=== PATIENT | male | born 1960 | race Caucasian/White ===

== ENCOUNTER 2024-08-10 08:02 | Inpatient (IN) | payer MEDICARE, SELFPAY ==
[2024-08-10] VITALS (21 sets, daily range): BP systolic 120–192; BP diastolic 76–123; BMI 19.5; BMI 23.1
[2024-08-10 05:24] LABS: Glucose - Point of Care 430 mg/dl (70-99)
[2024-08-10] MEDS: NSS 1000 IV (05:35)
[2024-08-10] MEDS: ATIVAN IV (05:51)
[2024-08-10 05:52] LABS: Venous Blood Gas B.E. -6.6 mmol/L (-4 to +4); Venous Blood Gas HCO3 20.6 mmol/L (22-27); Venous Blood Gas O2 Sat % 88.2 %; Venous Blood Gas pCO2 46 mmHg (35-48); Venous Blood Gas pH 7.26 (7.32-7.43); Venous Blood Gas pO2 61 mmHg (30-50)
[2024-08-10 05:52] LABS: Urine Albumin 3+ (Neg - Trace); Urine Bilirubin Negative (Negative); Urine Character Clear (Clear); Urine Color Yellow; Urine Glucose 4+ (Negative); Urine Ketone Negative (Negative); Urine Leukocyte Negative (Negative); Urine Nitrite Negative (Negative); Urine Occult Blood 1+ (Negative); Urine Specific Gravity 1.015 (<1.030); Urine Urobilinogen Negative (Neg - 1+)
[2024-08-10 05:54] LABS: % Basophils 1.4 % (0-2); % Eosinophils 2.6 % (0-6); % Immature Granulocytes 0.4 % (0-0.5); % Lymphocytes 24.2 % (20.5-51.1); % Monocytes 6.7 % (1.7-9.3); % Neutrophils 64.7 % (42.2-75.2); Absolute Basophils 0.1 10^3/uL (0-0.2); Absolute Eosinophils 0.3 10^3/uL (0-0.7); Absolute Lymphocytes 2.4 10^3/uL (1.2-3.4); Absolute Monocytes 0.7 10^3/uL (0.1-0.6); Absolute Neutrophils 6.5 10^3/uL (1.4-6.5); Hematocrit 51.9 % (39.0-52.0); Hemoglobin 17.2 g/dL (13.0-18.0); Mean Corp Hgb Conc. 33.1 g/dL (33.0-37.0); Mean Corpuscular Hgb 30.5 pg (27.0-31.0); Mean Platelet Volume 10.5 fL (7.4-10.4); Nucleated Red Blood Cells % 0 % (-); Platelet Count 373 10^3/uL (130-400); Red Blood Cell Count 5.64 10^6/uL (4.70-6.10); Red Cell Dist. Width 14.4 % (11.5-14.5)
--- NOTE | 2024-08-10 05:57 | ED.GENMED ---
History of Present Illness
General
Chief Complaint: Seizure
Source: ambulance crew
Exam Limitations: clinical condition and altered mental status
Time Seen by Provider: 08/10/24 05:22
Nursing documentation reviewed up to this point in time: agreed with
History of Present Illness
History of Present Illness:
63-year-old male presents to the emergency department after possibly having a seizure. According to EMS they were called out for patient with altered mental status. Family states they found him minimally responsive. Patient is diabetic and has
had a history of DKA multiple times while here in the past. He has had a stroke or TIA. He has a history of a subarachnoid hemorrhage and CABG. He has never had seizures before.
Vital signs are stable. Patient not hypoxic
Nursing note reviewed. I agree with nursing documentation up to this point in time.
Home Meds and allergies reviewed.
NUMBER AND COMPLEXITY OF PROBLEMS ADDRESSED AT THE ENCOUNTER
� Chronic conditions affecting care: Diabetes, uncontrolled hemoglobin A1c in the past, clinical acute systolic heart failure, sinus tachycardia, hypertension, pancreatitis, influenza, CABG, CKD 3 at baseline, history of SAH,
chronic right SERVICES HOST infarction and chronic right cerebellar infarction
� Acute Exacerbation and/or Progression of Chronic Illness: Insulin-dependent diabetes
� Differential Diagnosis includes: DKA, new onset seizures, subarachnoid, subdural, alcohol intoxication, ingestion
AMOUNT AND/OR COMPLEXITY OF DATA TO BE REVIEWED AND ANALYZED
I performed an independent evaluation of the following and my interpretation is:
EKG: EKG shows sinus rhythm rate of 98 with PVCs present. When compared with previous EKG dated October 22, 2021, morphology is similar with the exception of PVCs.
Pulse Ox: Not Hypoxic on room air
Pecan Gatherer: Sinus Rhythm
CT:
X-rays:
Ultrasound:
Laboratory Studies:
Other:
Review of other/old records:
Clinical information was obtained by an independent historian:
Prescriptions/Medications Considered but not given:
Further testing considered but not performed:
RISK OF COMPLICATIONS AND/OR MORBIDITY OR MORTALITY OF PATIENT MANAGEMENT
Social determinants of health affecting care: Good Social Support
Discussion with other providers:
Escalation of care including admission/observation vs risk of discharge considered: After being observed in the emergency department, patient is
CRITICAL CARE NOTE:
Total Time (exclusive of procedures):
Update:
Past History
Past History
ED Past Medical History: CAD, CVA, HTN, Hypercholesterolemia, IDDM, PR and Other (SAH)
ED Past Surgical History: Cardiac, Orthopedic and Other
Patient has exhibited threatening behavior?: No
Social History
Tobacco: Smoker
Alcohol: None
Drug: None
Personal:
Living: with family
Employment: Employed
Family History
Family History: Other
Review of Systems
Review of Systems
Allergies reviewed?: Yes
All Other Systems: Not applicable
Constitutional: Reports sleep disturbance
Psychiatric: Reports anxiety
Phy Exam
General Physical Exam
General Presentation: severe distress
General age: appears stated age
General Skin: warm and diaphoretic
General Habitus: normal
General Mental: appears intoxicated and confused
General Hydration: appears well hydrated
ENT Exam
ENT Exam: EOMI and neck supple
Eye Exam
Eye Exam: PERRL, cornea clear and conjunctiva normal
Cardiovascular Exam
Cardiovascular Exam: regular rate/rhythm and no edema
Pulmonary Exam
Pulmonary Exam: lungs clear, no respiratory distress, no rales, no rhonchi and no cough
Gastrointestinal Exam
Gastrointestinal Exam: normal bowel sounds, non tender, soft, no organomegaly, no pulsatile mass and non distended
Genitourinary Exam Male
Exam Male: circumcised and other (Excoriation to the glans of the penis that appears to be necrotic)
Neurological Exam
Neurological Exam: alert, oriented x3, no motor deficits and speech normal
Musculoskeletal Exam
Musculoskeletal Exam: full ROM and no edema
Skin Exam
Skin Exam: normal color, warm/dry, no rash and no petechia
Psychiatric Exam
Psychiatric Exam: normal mood/affect
Course
Orders/Labs/Results
Orders:
Orders
08/10/24 05:19
Bedside Glucose- Treatment ONCE
Cardiac Monitoring- Treatment ONCE
O2 Therapy [RESP] Stat
Nasal Cannula Liter Flow: 2 LPM
Titrate/Wean O2 to maintain O2 sat greater than (%): 93
Wean Oxygen to Pre Admission Baseline Therapy-if applicable: Yes
Contact provider if nasal cannula O2 requirement > 6 liters: Yes
Pulse Ox/cont/shift [RESP] Stat
Quantity: 1
08/10/24 05:20
Electrocardiogram (*1) Stat
Reason for Study: Other
Other Reason for Exam: neuro symptoms
08/10/24 05:[address] [CT Head W/o Iv Contrast] Urgent
Comment:
Reason For Exam: seizures
EKG- Treatment ONCE
08/10/24 05:22
Lorazepam [Ativan] 1 mg IV NOW STA
08/10/24 05:35
0.9% Sodium Chloride 1000 ml [Nss] 1,000 ml IV BOLUS
08/10/24 05:43
Alcohol Urgent
B-Hydroxybutyrate Urgent
CRP [C-Reactive Protein] Urgent
Complete Blood Count/With Diff Urgent
Comprehensive Metabolic Panel Urgent
Lipase Urgent
Magnesium Urgent
Sed Rate [Erythrocyte Sed Rate] Urgent
UA Reflex to Culture [Urinalysis Reflex To Culture] Urgent
Date Specimen was Collected: 08/10/24
Time Specimen was Collected: 05:39
Urine Drug Abuse Screen Urgent
Date Specimen was Collected: 08/10/24
Time Specimen was Collected: 05:22
Urine Microscopic Reflex Cult Urgent
08/10/24 05:46
Lactic Acid Urgent
Venous Blood Gas Urgent
%Oxygen/Room Air: RA
08/10/24 06:17
Bedside Glucose- Treatment Q1H
IV Insert/Care/Rem.- Treatment PRN
Insulin Human Regular [Novolin R] 6 units IV NOW STA
Reg Insulin 100 Units/100 ml [Novolin R Insulin Infusion] 100 units in 100 ml IV NOW
08/10/24 06:27
Basic Metabolic Panel Q2H
08/10/24 06:32
Levetiracetam Injectable [Keppra] 2,000 mg IV NOW STA
08/10/24 06:38
Lactated Ringers [Lr] 1,000 ml IV BOLUS
08/10/24 06:40
Insulin Human Regular [Novolin R] 10 units IV NOW STA
08/10/24 06:42
Levetiracetam Injectable [Keppra] 1,000 mg IV NOW STA
08/10/24 06:43
Add On - Microbiology Urgent
Tests Added?: urine G and C
COVID-19 Antigen Urgent
Source: Nasal Swab
Influenza A+B Rapid Molecular Urgent
REJI Source: Nasal Swab
Specimen Description:
08/10/24 06:45
Blood Culture Q30M
REJI Source: Blood/Venous
Specimen Description:
MRSA Screen Routine
REJI Source: Nose
Specimen Description:
Wound Culture [Wound/Abscess/Other Culture] Urgent
REJI Source: Lesion
Specimen Description:
Date Specimen was Collected: 08/10/24
Time Specimen was Collected: 06:46
Comment: source: penis
08/10/24 07:15
Blood Culture Q30M
REJI Source: Blood/Venous
Specimen Description:
08/10/24 08:30
Basic Metabolic Panel Q2H
08/10/24 10:30
Basic Metabolic Panel Q2H
Abnormal Lab Results
08/10/24 08/10/24 08/10/24
05:23 05:43 05:46
MPV 10.5 H fL
(7.4-10.4)
Absolute Monos (auto) 0.7 H 10^3/uL
(0.1-0.6)
VBG pH 7.26 L
(7.32-7.43)
VBG pO2 61 H mmHg
(30-50)
VBG HCO3 20.6 L mmol/L
(22-27)
Carbon Dioxide 21 L mmol/L
(22-30)
BUN 40 H mg/dl
(9-20)
Creatinine 1.6 H mg/dL
(0.7-1.3)
Glucose 461 H* mg/dl
(70-99)
Lactic Acid 7.1 H* mmol/L
(0.7-2.0)
Calcium 10.3 H mg/dl
(8.4-10.2)
Total Bilirubin 2.2 H mg/dl
(0.2-1.3)
Alkaline Phosphatase 269 H U/L
(38-126)
C-Reactive Protein 12.40 H mg/L
(0.0-10.00)
Ur Occult Blood Reflex 1+ A
(Negative)
Urine Bacteria (Reflex) Few A
(Negative)
Urine Glucose 4+ A
(Negative)
Urine Albumin (Reflex) 3+ A
(Neg - Trace)
B-Hydroxybutyrate 0.41 H mmol/L
(0.02-0.27)
POC Glucose 430 H mg/dl
(70-99)
08/10/24
06:24
MPV
Absolute Monos (auto)
VBG pH
VBG pO2
VBG HCO3
Carbon Dioxide
BUN
Creatinine
Glucose
Lactic Acid
Calcium
Total Bilirubin
Alkaline Phosphatase
C-Reactive Protein
Ur Occult Blood Reflex
Urine Bacteria (Reflex)
Urine Glucose
Urine Albumin (Reflex)
B-Hydroxybutyrate
POC Glucose 391 H mg/dl
(70-99)
08/10/24 05:43
Vital Signs
Initial and Last Documented VS:
Initial Vital Signs
BP
192/118
08/10/24 05:21
Last Documented Vital Signs
Temp Pulse Resp BP Pulse Ox
98.2 F 106 18 171/98 96
08/10/24 05:22 08/10/24 06:15 08/10/24 06:15 08/10/24 06:00 08/10/24 06:15
*Pulse Oximetry
Patient hypoxic: no
*Pecan Gatherer Interpretation
Rate: normal
Interpretation: normal
Heart Rate: 88
Rhythm: sinus
*Critical Care Note
Total Time (30-74mins, 75-104mins- exclusive of procedures): 50 (Critical care statement: A total of 50 minutes of critical care time was provided for this patient. This time is separate from time utilized to perform the aforementioned documented
procedures. Aggregate critical care time includes only time during which I was engaged in work directl)
Update Note
Update Note:
Patient has an anion gap of 17
CT HEAD WITHOUT CONTRAST
COMPARISON: 10/21/2021
IMPRESSION:
No acute intracranial hemorrhage. No evidence of acute infarct.
Encephalomalacia right cerebellum, left parietal, right occipital lobes.
No mass effect or midline shift.
Ventricles are normal without hydrocephalus.
Visualized paranasal sinuses and mastoids are clear.
No calvarial lesion.
Spoke with who is now present at the bedside.
She stated that patient has not been able to converse normally for the last 2 days.
he has never had a seizure before
His mother last week.
ED Attending Note
-
Portions of this chart may have been created with voice recognition software.� Occasional wrong word or��sound alike� substitutions may have occurred due to the inherent limitations of voice recognition software.
Discharge Plan
Departure
Patient Disposition: Admit
Date of Disposition: 08/10/24
Time of Disposition: 06:49
Presentation/result/management discussed w/ accepting MD/DO: Hospitalist
Patient with high blood pressure during this ER visit?: Yes
Condition: Critical
Discharge Problem:
DKA (diabetic ketoacidosis), CAD (coronary artery disease), Diabetes, CKD (chronic kidney disease) stage 3, GFR 30-59 ml/min, New onset seizure, History of CVA (cerebrovascular accident)
Prescriptions:
No Action
metoprolol succinate 25 MG tablet extended release 24 hr
25 mg PO DAILY
pantoprazole 40 MG tablet,delayed release (DR/EC)
40 mg PO DAILY
insulin regular human [Novolin R FlexPen] 300 UNITS/3 ML insulin pen
16 units SC DAILY@0800 Qty: 0 0RF
torsemide 10 MG tablet
10 mg PO DAILY Qty: 30 0RF
hydralazine 25 MG tablet
25 mg PO BID Qty: 60 0RF
atorvastatin 80 MG tablet
80 mg PO QPM Qty: 30 0RF
clopidogrel 75 MG tablet
75 mg PO DAILY Qty: 30 0RF
aspirin 81 MG tablet,chewable
81 mg PO DAILY Qty: 30 0RF
insulin NPH isoph U-100 human [Novolin N FlexPen] 100 UNIT/ML insulin pen
15 unit SQ QPM@1700
insulin NPH isoph U-100 human [Novolin N FlexPen] 100 UNIT/ML insulin pen
17 unit SQ DAILY
insulin regular human [Novolin R FlexPen] 300 UNITS/3 ML insulin pen
12 units SC QPM@1700
meclizine 12.5 MG tablet
12.5 mg PO TID Qty: 30 0RF
Referrals:
UNKNOWN - PT DOES,NOT KNOW [Family Provider] -
Interventions
Interventions:
*Risk Screen - Suicide Last Done: 08/10/24 05:22
*General Assessment Last Done: 08/10/24 05:22
*Neglect/Abuse Screening Last Done: 08/10/24 05:22
*ED COVID-19 Vaccine History Last Done: 08/10/24 05:22
ED- Cardiac Assessment Last Done: 08/10/24 05:56
ED- Neurological Assessment Last Done: 08/10/24 05:59
ED- Pulmonary Assessment Last Done: 08/10/24 05:59
Discharge Date and Time
Print Language: PORTUGUESE
[2024-08-10 06:02] LABS: Erythrocyte Sed Rate 2 mm/hour (0-20)
[2024-08-10 06:07] LABS: Venous Blood Gas O2 Therapy ROOM AIR
[2024-08-10 06:08] LABS: Urine Bacteria Few (Negative); Urine Red Blood Cell 0-2 /HPF (0-2); Urine Squamous Cell 0-2 /LPF (Few); Urine White Cell 0-2 /HPF (0-5)
[2024-08-10 06:10] LABS: Amphetamines Negative (Negative); Barbiturates Negative (Negative); Benzodiazepines Negative (Negative); Buprenorphine Negative (Negative); Cocaine Negative (Negative); Marijuana Negative (Negative); Methadone Negative (Negative); Methamphetamines Negative (Negative); Opiates Negative (Negative); Phencyclidine Negative (Negative); Tricyclic Antidepressants Negative (Negative)
[2024-08-10 06:13] LABS: Lactic Acid 7.1 mmol/L (0.7-2.0)
[2024-08-10] MEDS: ATIVAN 1 MG IV (06:13)
[2024-08-10 06:14] LABS: AST (SGOT) 54 U/L (17-59); Albumin 3.8 g/dl (3.5-5.0); Alcohol < 10 mg/dl; Alkaline Phosphatase 269 U/L (38-126); Blood Urea Nitrogen 40 mg/dl (9-20); Calcium 10.3 mg/dl (8.4-10.2); Carbon Dioxide 21 mmol/L (22-30); Chloride 105 mmol/L (98-107); Estimated Creatinine Clearance 41 ml/min; Glucose 461 mg/dl (70-99); Lipase 82 U/L (23-300); Potassium 3.9 mmol/L (3.5-5.1); Sodium 143 mmol/L (135-145); Total Bilirubin 2.2 mg/dl (0.2-1.3); Total Protein 7.2 g/dl (6.3-8.2); eGFR 48.11
--- NOTE | 2024-08-10 06:14 | EDRN ---
Pt. w. second witnessed seizure, pt w/ rt. gaze preference and jerking motions of upper body, Dr. Rolf koch, RN administered ativan per orders, seizure ceased, lasted approximately 20 seconds. Pt's pulse ox. dropped to 86% on RA, RA pulse ox.
up to 90 % on RA s/p seizure, pt. placed on 2L NC, pulse ox. now 96% on 2LNC.
[2024-08-10 06:24] LABS: ALT (SGPT) 47 U/L (0-50); B-Hydroxybutyrate 0.41 mmol/L (0.02-0.27)
[2024-08-10 06:25] LABS: Glucose - Point of Care 391 mg/dl (70-99)
--- NOTE | 2024-08-10 06:46 | HPS.HSE ---
Family Physician
-
Family Physician: NOT KNOW UNKNOWN - PT DOES
Chief Complaint
-
Seizure
History of Present Illness
This is a 63-year-old male with past medical history significant for CAD status post CABG, prior CVA, insulin-dependent diabetes, hypertension, hyperlipidemia, chronic ambulatory dysfunction presenting to the emergency department with altered mental
status and also had a seizure episode.
Patient was postictal at the time of my interview and unable to provide any history. History obtained from spouse who speaks some possible [place]. She stated at around 4 AM she found him having generalized shaking. He was not able to talk and
was not responsive. This caused family to call EMS. When EMS started patient he was minimally responsive. He was somnolent. EMS then transferred patient to the emergency department. On arrival in the emergency department at around 5-5 20 the
patient was seen having a seizure activity that was terminated with IV benzo.
Spouse reports possible that the patient has been having altered mental status for around 2 days. He was having difficulty speaking. He appears to be having garbled speech for about 2 days. He was only tolerating pudding and liquids. He was
having ambulatory difficulties and today was not even able to get up. Spouse denies any chest congestion cough fevers or chills. She denies any urinary symptoms. She denies any abdominal symptoms. She denies any trauma. She said that he had a
similar presentation about 1 week ago but appeared to recover and then symptoms started recurring about 2 days ago. Patient has no recent travels and they have no known sick contacts. Patient's spouse reported that he had a recent changes in
insulin regimen going from regular/Novolin to Lantus and Humalog. He was given that units of Lantus at bedtime and she reports low blood glucose in the mornings but she has since discontinued the Lantus and she reports that last morning blood
glucose were normal. She checked his glucose last night after putting dinner and the glucose was around 200. She did give insulin at that time. He has no other acute changes in his medications. He has no history of seizures.
In the emergency department initial findings were blood pressure of 162/94, pulse of 105, respiratory rate of 13 and oxygen saturation of 94% on 2 L. ECG showed a sinus rhythm at a rate of [address] or T wave changes. CBC shows a
hemoglobin of 17.2 white count of 10 and a bili of 375. Electrolytes were normal his creatinine was 1.6 which is baseline BUN was elevated at 40. Calcium slightly elevated at 10.3 magnesium 2.0. Glucose was elevated at 461. He has a bicarb of
21. Anion gap was 17. pH was 7.26. Initial lactic acid was 7.1.
Medical History
Past Medical History
Past Medical History: Reports CAD (Status post CABG), CVA, HTN, Hypercholesterolemia, IDDM and Other (Subarachnoid hemorrhage)
Past Surgical History: Reports Cardiac (CABG)
Social History
Unable to obtain full social history at this time due to: Patient Non-verbal
Family History
Family History: Not pertinent
Allergies / Home Medications
Allergies reflects when Allergies were last updated in [facility].
Home Medications with original date entered in [facility]
Allergy/Medication List:
Allergies
Allergy/AdvReac Type Severity Reaction Status Date / Time
No Known Allergies Allergy Verified 08/10/24 05:19
Home Medications
metoprolol succinate 25 mg tablet,extended release 24 hr 25 mg PO DAILY Blood pressure 03/10/21
pantoprazole 40 mg tablet,delayed release 40 mg PO DAILY Gastrointestinal issue 03/10/21
aspirin 81 mg chewable tablet 81 mg PO DAILY Blood clot prevention/tx #30 tabs 03/20/21
atorvastatin 80 mg tablet 80 mg PO QPM High cholesterol #30 tabs 03/20/21
clopidogrel 75 mg tablet 75 mg PO DAILY Blood clot prevention/tx #30 tabs 03/20/21
hydralazine 25 mg tablet 25 mg PO BID #60 tabs 03/20/21
insulin regular human 100 unit/mL (3 mL) subcutaneous pen (Novolin R FlexPen) 16 units (0.16 mL) SC DAILY@0800 ##0 03/20/21
torsemide 10 mg tablet 10 mg PO DAILY #30 tabs 03/20/21
insulin NPH isoph U-100 human 100 unit/mL (3 mL) subcutaneous pen (Novolin N FlexPen) 15 unit SQ QPM@1700 10/21/21
insulin NPH isoph U-100 human 100 unit/mL (3 mL) subcutaneous pen (Novolin N FlexPen) 17 unit SQ DAILY 10/21/21
insulin regular human 100 unit/mL (3 mL) subcutaneous pen (Novolin R FlexPen) 12 units SC QPM@1700 10/21/21
meclizine 12.5 mg tablet 12.5 mg PO TID #30 tabs 10/24/21
Review of Systems
-
Unable to obtain full review of systems at this time due to: Patient Non-verbal
Physical Exam
Vital Signs
Vital Signs
Temp Pulse Resp BP Pulse Ox
98.2 F 106 18 171/98 96
08/10/24 05:22 08/10/24 06:15 08/10/24 06:15 08/10/24 06:00 08/10/24 06:15
Physical Exam
General: Well Developed and No Apparent Distress
HEENT: NormoCephalic, Anicteric, Moist mucous membranes, Atraumatic, PERRLA and Oxygen
Respiratory: Clear
Cardiac: S1/S2 and Regular Rhythm
Breast: Deferred by me
GI: Soft, Non Tender, Non Distended and Normal Bowel Sounds
Rectal: Deferred by Provider
Genito-urinary: Clear Urine
Musculoskeletal: No Clubbing, No Cyanosis and No Edema
Skin: Rash (penile rash with small open wound, malodorous)
Neuro: Sedated (post-ictal depression)
Hematologic/Lymphatic: No Lymphadenopathy
Laboratory Results
-
08/10/24 05:43
Laboratory Results
Lactic Acid 7.1 mmol/L (0.7-2.0) H* 08/10/24 05:46
Total Bilirubin 2.2 mg/dl (0.2-1.3) H 08/10/24 05:43
AST 54 U/L (17-59) 08/10/24 05:43
ALT 47 U/L (0-50) 08/10/24 05:43
Alkaline Phosphatase 269 U/L (38-126) H 08/10/24 05:43
Lipase 82 U/L (23-300) 08/10/24 05:43
Data Reviewed
-
CT Scan: Report Reviewed by me
Medical Tests (Nuc Med, Echo, EKG etc): Image Personally Visualized and interpreted
Lab Data: Labs Reviewed by me
Old Records: Reviewed
Impression/Plan
-
IMPRESSION:
63 y.o with new onset seizures in the setting of approximately 2 days of altered mental status typified by speech difficulty (garbled speech) and ambulatory difficulty. Possibly preceding stroke with possible status epilepticus. Hyperglycemia with
mild anion gap which I suspect is secondary to lactic acidosis from the status epilepticus. No acute infection on initial evaluation.
PLAN:
1. New onset seizures - Status epilepticus s/p benzos now post ictal.
- admit to IMU
- head ct w/o acute findings
- u/a is clear
- drug screen is negative
- no etoh use
- differential includes stroke, unknown mass, infection or hypoglycemic episode
- MRI, EEG. When stable and if indicated possible LP
- Keppra 750mg q 12 for now given GFR
- lorazepam 2g IV q8 prn sz
- additional Inf w/u with blood cultures and viral panel,
- NPO for now
- neurochecks q 4 hours
- while NPO will maintain BP < 180 with iv labetolol prn
- neurology consult
2. Hyperglycemia - Initial glucose 460, now 390 s/p 1 L NS. AGAP 17 with lactate of 7. bHB pending. pH 7.26.
- insulin 10 units + additional 1 L LR
- if bHB negative, no indication for DKA protocol
- continue on LR at 80 ml/hr
- blood glucose q 4 hours w/ moderate sliding scale insulin
- diabetes RESIDENTIAL INSTRUCTOR consult[ home regimen currently is a Insulin N/R 17/16 units am and 15/12 units pm, the prescription for lantus 30 with humalog 15 tidac lead to hypoglycemia and was discontinued.]
3. Skin lesion - irritation vs chancroid lesion. No Inguinal lymphadenopathy. Less likely syphilis
- given neurological changes will test for treponema serology w/ rpr
- wound/lesion culture cultures
- urinary G/C
- ID consult
4. CAD - NO acute ischemic changes
- restart aspirin/plavix/statin when tolerating po
- metoprolol 5mg iv q 6 for now pending npo
- holding torsemide
DVT PPX - heparin sq
code status - Full Code
[2024-08-10] MEDS: KEPPRA 1000 MG IV (06:55)
[2024-08-10] MEDS: NOVOLIN R 10 UNITS IV (06:56)
[2024-08-10] MEDS: LR 1000 IV ×3 (06:56→20:22)
[2024-08-10 07:07] LABS: Blood Urea Nitrogen 39 mg/dl (9-20); Calcium 9.2 mg/dl (8.4-10.2); Carbon Dioxide 21 mmol/L (22-30); Chloride 108 mmol/L (98-107); Estimated Creatinine Clearance 44 ml/min; Glucose 460 mg/dl (70-99); Potassium 4.2 mmol/L (3.5-5.1); Sodium 141 mmol/L (135-145); eGFR 51.99
[2024-08-10 07:29] LABS: Glucose - Point of Care 343 mg/dl (70-99)
[2024-08-10 08:00] LABS: COVID-19 Antigen Negative (Negative)
[2024-08-10 08:08] LABS: Glucose - Point of Care 305 mg/dl (70-99)
--- NOTE | 2024-08-10 08:17 | CON.NEURO ---
Consultation
Order
Date of Consultation: 08/10/24
Requesting Provider: Levi cMfarland MD
Reason for Consult: New onset of seizure.
Neurology Consultation Note.
HPI: This is a 63-year-old man who presented to [facility] on 08/10/2024 with encephalopathy and seizure. According to patient's spouse(Thai fbi sharpshooter ID: [id number]) around 4 a.m., the patient was witnessed to have developed
'bilateral upper and lower extremity tremors and facial asymmetry. Following the episode he has been lethargic prompting the evaluation.
Mr. Christianson has a history of progressive cognitive decline over the past few months, with significant worsening in the last two years. For the past six months, he has required assistance with activities of daily living, including bathing and
toileting. He has been incontinent been using walker for ambulation .
According to EMR the patient was diagnosed with bihemispheric strokes in settings of influenza, DKA/acute pancreatitis/respiratory failure in 2020. At that time he was found to have PFO and had LINQ placed. It is unclear at this time whether
patient had cardiology follow-up.
ER VS: 192/118, 117, afebrile
EKG: sinus rhythm, QTc Int : 482 ms
PDMP: none
Labs: Glucose�460, lactic acid�7.1, normal calcium, sodium, creatinine�1.5, normal WBCs
CT head wo contrast�advanced for the age atrophy, severe periventricular hypodensities, chronic right [employer] infarct
Brain MRI without naz (03/15/2021)�acute/subacute bihemispheric subcortical/cortical infarcts
JAMIN(03/18/2021) there are bubbles immediately crossing into the left atrium, No intracardiac mass or thrombus
LE Doppler US(03/17/2021) negative for DVT
PMH: vascular dementia, bihemispheric strokes (2020), PFO, SAH(2008?), CAD, HTN, DLP, type I DM, CKD, h/o pancreatitis, GERD, BMI 19, ambulatory dysfunction, ambulatory dysfunction
PSH: LINQ, CABG
SH: , on disability since 2008, formerly worked for [employer], non-smoker, no history excessive alcohol use; ambulates with a walker
FH: Stroke and coronary artery disease
All:NKDA
ROS: C unable due to encephalopathy
General: Chronically ill looking
Cardio: Regular rate and rhythm. Extremities are without cyanosis or edema.
Neuro:
Mental Status: Stuporous. Moans to sternal rub does not follow requests. No verbal output
Cranial Nerves: Orthophoric primary gaze. Pupils 2.5 mm, nonreactive. No nystagmus, facial weakness.
Motor: Increased motor tone left greater than right
Reflexes: No clonus at the ankles.
Sensory: Unable to report
Coordination: No tremors myoclonic movements
Gait: deferred
Assessment and Plan:
I. First seizure, likely symptomatic.
II. Hypertensive emergency
III. Multifactorial encephalopathy (vascular, metabolic)
IV. 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
V. History of SAH
-Continue Telemetry monitoring
-History glycemic control
-Seizure precaution
-Cautious lowering of BP by approximately 15 % during the first 24 hours is SBP >220 mmHg or diastolic blood pressure >120 mmHg
-Restart antihypertensive medications if BP>140/90 mmHg and neurologically stable in 24 to 48 hours after stroke onset
-Brain MRI without naz
-Routine EEG
-Carotid Doppler ultrasound
-Start Keppra
-Please check magnesium, UA, urine tox, B12, TFTs, CK level
-Continue aspirin 81 mg once a day and Plavix 75 mg once a day
-Please obtain cardiology records to review Linq data if available.
-Please obtain medical records from [facility]
-DVT prophylaxis.
I personally reviewed all radiology and labs along with past medical records pertinent to current medical problems. Total time spent in patient care is 70 minutes.
Thank you for allowing us to participate in the care of this patient. We will continue to follow. Please do not hesitate to contact us with any questions or concerns.
Subjective/Objective
Subjective Data
Date of Service: August 10, 2024
Objective Data
Vital Signs
Temp Pulse Resp BP Pulse Ox
36.8 C 92 17 159/102 99
08/10/24 05:22 08/10/24 06:45 08/10/24 06:30 08/10/24 06:28 08/10/24 06:45
Lab Results
08/10/24 05:43
Sodium 141 mmol/L (135-145) 08/10/24 06:27
Potassium 4.2 mmol/L (3.5-5.1) 08/10/24 06:27
BUN 39 mg/dl (9-20) H 08/10/24 06:27
Glucose 460 mg/dl (70-99) H* 08/10/24 06:27
Calcium 9.2 mg/dl (8.4-10.2) 08/10/24 06:27
Ur Buprenorphine Negative (Negative) 08/10/24 05:43
Patient Allergies
No Known Allergies Allergy (Verified 08/10/24 05:19)
Medications
-
Active Medications
Generic Name Dose Route Start Last Admin
Trade Name Freq PRN Reason Stop Dose Admin
Insulin Human Regular 100 units in 100 mls @ 3.075 mls/hr 08/10/24 06:17 08/10/24 06:38
Novolin R Insulin Infusion IV 08/11/24 14:48 Not Given
NOW STA
0.05 UNITS/KG/HR
Home Medications
�Medication �Instructions �Recorded
metoprolol succinate 25 mg 25 mg PO DAILY Blood pressure 03/10/21
tablet,extended release 24 hr
pantoprazole 40 mg tablet,delayed 40 mg PO DAILY Gastrointestinal 03/10/21
release issue
aspirin 81 mg chewable tablet 81 mg PO DAILY Blood clot 03/20/21
prevention/tx #30 tabs
atorvastatin 80 mg tablet 80 mg PO QPM High cholesterol #30 03/20/21
tabs
clopidogrel 75 mg tablet 75 mg PO DAILY Blood clot 03/20/21
prevention/tx #30 tabs
hydralazine 25 mg tablet 25 mg PO BID #60 tabs 03/20/21
insulin regular human 100 unit/mL 16 units (0.16 mL) SC DAILY@0800 03/20/21
(3 mL) subcutaneous pen (Novolin R ##0
FlexPen)
torsemide 10 mg tablet 10 mg PO DAILY #30 tabs 03/20/21
insulin NPH isoph U-100 human 100 15 unit SQ QPM@1700 10/21/21
unit/mL (3 mL) subcutaneous pen
(Novolin N FlexPen)
insulin NPH isoph U-100 human 100 17 unit SQ DAILY 10/21/21
unit/mL (3 mL) subcutaneous pen
(Novolin N FlexPen)
insulin regular human 100 unit/mL 12 units SC QPM@1700 10/21/21
(3 mL) subcutaneous pen (Novolin R
FlexPen)
meclizine 12.5 mg tablet 12.5 mg PO TID #30 tabs 10/24/21
Vital Signs and Labs
-
Vital Signs and Labs:
Vital Signs
Temp Pulse Resp BP Pulse Ox
36.8 C 92 17 159/102 99
08/10/24 05:22 08/10/24 06:45 08/10/24 06:30 08/10/24 06:28 08/10/24 06:45
Lab Results
08/10/24 05:43
Sodium 141 mmol/L (135-145) 08/10/24 06:27
Potassium 4.2 mmol/L (3.5-5.1) 08/10/24 06:27
BUN 39 mg/dl (9-20) H 08/10/24 06:27
Glucose 460 mg/dl (70-99) H* 08/10/24 06:27
Calcium 9.2 mg/dl (8.4-10.2) 08/10/24 06:27
Ur Buprenorphine Negative (Negative) 08/10/24 05:43
Medications
-
Medications:
Generic Name Dose Route Start Last Admin
Trade Name Freq PRN Reason Stop Dose Admin
Insulin Human Regular 100 units in 100 mls @ 3.075 mls/hr 08/10/24 06:17 08/10/24 06:38
Novolin R Insulin Infusion IV 08/11/24 14:48 Not Given
NOW STA
0.05 UNITS/KG/HR
Home Medications
-
Home Medications
metoprolol succinate 25 mg tablet,extended release 24 hr 25 mg PO DAILY Blood pressure 03/10/21
pantoprazole 40 mg tablet,delayed release 40 mg PO DAILY Gastrointestinal issue 03/10/21
aspirin 81 mg chewable tablet 81 mg PO DAILY Blood clot prevention/tx #30 tabs 03/20/21
atorvastatin 80 mg tablet 80 mg PO QPM High cholesterol #30 tabs 03/20/21
clopidogrel 75 mg tablet 75 mg PO DAILY Blood clot prevention/tx #30 tabs 03/20/21
hydralazine 25 mg tablet 25 mg PO BID #60 tabs 03/20/21
insulin regular human 100 unit/mL (3 mL) subcutaneous pen (Novolin R FlexPen) 16 units (0.16 mL) SC DAILY@0800 ##0 03/20/21
torsemide 10 mg tablet 10 mg PO DAILY #30 tabs 03/20/21
insulin NPH isoph U-100 human 100 unit/mL (3 mL) subcutaneous pen (Novolin N FlexPen) 15 unit SQ QPM@1700 10/21/21
insulin NPH isoph U-100 human 100 unit/mL (3 mL) subcutaneous pen (Novolin N FlexPen) 17 unit SQ DAILY 10/21/21
insulin regular human 100 unit/mL (3 mL) subcutaneous pen (Novolin R FlexPen) 12 units SC QPM@1700 10/21/21
meclizine 12.5 mg tablet 12.5 mg PO TID #30 tabs 10/24/21
[2024-08-10 09:04] LABS: Glucose - Point of Care 263 mg/dl (70-99)
[2024-08-10] MEDS: HEPARIN 5000 UNITS SC ×3 (09:11→23:45)
[2024-08-10] MEDS: NOVOLOG FLEXPEN-MODERATE RESISTANCE 5 UNITS SC (09:14)
[2024-08-10 09:32] LABS: Blood Urea Nitrogen 38 mg/dl (9-20); Calcium 9.2 mg/dl (8.4-10.2); Carbon Dioxide 26 mmol/L (22-30); Chloride 110 mmol/L (98-107); Estimated Creatinine Clearance 47 ml/min; Glucose 298 mg/dl (70-99); Potassium 3.6 mmol/L (3.5-5.1); Sodium 141 mmol/L (135-145); eGFR 56.48
[2024-08-10 09:58] LABS: Creatine Phosphokinase 45 U/L (55-170); Magnesium 1.8 mg/dl (1.6-2.3)
[2024-08-10 10:41] LABS: Glucose - Point of Care 199 mg/dl (70-99)
[2024-08-10 10:59] LABS: Blood Urea Nitrogen 37 mg/dl (9-20); Calcium 9.4 mg/dl (8.4-10.2); Carbon Dioxide 28 mmol/L (22-30); Chloride 110 mmol/L (98-107); Estimated Creatinine Clearance 47 ml/min; Glucose 216 mg/dl (70-99); Lactic Acid 3.1 mmol/L (0.7-2.0); Potassium 3.3 mmol/L (3.5-5.1); Sodium 144 mmol/L (135-145); eGFR 56.48
--- NOTE | 2024-08-10 11:19 | EDRN ---
Report given to NORMAN King in IMU.
[2024-08-10 11:30] LABS: TSH Reflex To Free T4 2.99 uIU/ml (0.47-4.68)
--- NOTE | 2024-08-10 12:04 | CON.ID ---
Consultation
-
Date/Time Consultation Requested: 08/10/24 8:50
Date/Time Consultation Performed: 08/10/24 12:04
Requesting Provider: Dr Mcfarland
Performing Provider: Dr Schuler
Reason for Consultation: penile lesion
Chief Complaint / Past History
Chief Complaint
seizure
History of Present Illness
Mr Christianson is a 63 year old male with history of prior CVA who presented [facility] late last night for altered mental status and a seizure witnessed by EMS. Starting about 2 days ago reported AMS for about 2 days, garbled speech and difficulty
speaking. He was still taking some liquid and pudding but unable to eat. No fevers, chills or chest congestion. No abdominal pain or dysuria. No trauma. Of note with a similar episode about 1 week ago that spontaneously resolved. Household
member reported at 4 am he was having generalized shaking, not responsive, not able to respond. EMS called, found him minimally responsive, somnolent. On arrival in the ER had a witnessed seizure that terminated with a benzodiazepine. No known
history of seizures. Requiring assistance with ADLs - bathing and toileting
Family note that his insulin was recently changed from regular/novolin to lantus and humalog. noted 'low' blood glucoses in the AM and lantus was stopped.
In the emergency department blood pressure of 162/94, pulse of 105, RR 13 and O2 saturation 94% on 2 L. ECG sinus rhythm. CBC with WBC count 10.0, hemoglobin of 17.2, plt 373, no L shift, Na 143, cr 1.6 at his baseline, glucose 461, lactic acid
initially 7.1, CK 45, UA no pyuria, UDS negative, BHB 0.41 (normal up to 0.27), 2011 RPR nonreactive, 2020: Hep B/C serologies negative, today syphilis serology in progress, HSV 1/2 pending, covid ag pending, CT head w/o contrast: no acute findings,
multiple old infarcts, influenza negative, wound culture in progress, blood cultures x2 no growth to date, urine culture pending, patient will state that the wound is painful, doesnt respond to questions about sexual history.
Past History
Additional Past Medical History:
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
CAD (Status post CABG), CVA, HTN, Hypercholesterolemia, IDDM and Other (Subarachnoid hemorrhage)
Additional Past Surgical History:
CABG
Allergy History:
No Known Allergies Allergy (Verified 08/10/24 05:19)
Medications Reviewed: Yes
Social History
Tobacco: Other (, on disability since 2008, formerly worked for [employer], non-smoker, no history excessive alcohol use; ambulates with a walker)
Family History
Family History: Not Pertinent
Review of Systems
Review of Systems
General: Negative Fever or Chills
All systems: All other systems were reviewed and were negative
Vital Signs
Temp Pulse Resp BP Pulse Ox
98.2 F 79 20 138/84 99
08/10/24 05:22 08/10/24 11:00 08/10/24 11:00 08/10/24 11:00 08/10/24 11:00
Physical Exam
Physical Exam
Constitutional: No Acute Distress
Head: Other (resting in position with knees and neck flexed)
Cardiovascular: Regular Rate and S1/S2; Negative Murmur or Rub
Pulmonary: Clear and Symmetric; Negative Wheezes, Rales or Rhonchi
Gastrointestinal: Soft, Non Tender, Non Distended and Normal Bowel Sounds
Skin: Warm and Dry; Negative Rash or Jaundice
Wound: Other
Lab / Diagnostic Study Results
08/10/24 05:43
Abs Immat Gran (auto) 0.0 10^3/uL (0-0.05) 08/10/24 05:43
Absolute Neuts (auto) 6.5 10^3/uL (1.4-6.5) 08/10/24 05:43
Absolute Lymphs (auto) 2.4 10^3/uL (1.2-3.4) 08/10/24 05:43
Absolute Monos (auto) 0.7 10^3/uL (0.1-0.6) H 08/10/24 05:43
Absolute Basos (auto) 0.1 10^3/uL (0-0.2) 08/10/24 05:43
Immature Gran % 0.4 % (0-0.5) 08/10/24 05:43
Neutrophils % 64.7 % (42.2-75.2) 08/10/24 05:43
Lymphocytes % 24.2 % (20.5-51.1) 08/10/24 05:43
Monocytes % 6.7 % (1.7-9.3) 08/10/24 05:43
Eosinophils % 2.6 % (0-6) 08/10/24 05:43
Basophils % 1.4 % (0-2) 08/10/24 05:43
ESR 2 mm/hour (0-20) 08/10/24 05:43
Lactic Acid 3.1 mmol/L (0.7-2.0) H 08/10/24 10:38
C-Reactive Protein 12.40 mg/L (0.0-10.00) H 08/10/24 05:43
Ur Squamous Epith Cells 0-2 /LPF (Few) 08/10/24 05:43
Microbiology Results
Micro:
08/10/24 07:10 Wound Culture - Pending
Lesion Gram Stain - Preliminary
08/10/24 07:12 Influenza Types A & B (MONSE) - Final
Nasal Swab Negative for Influenza A & B, NAAT
Negative results must be combined with clinical observations
and patient history.
Nucleic Acid Amplification test (NAAT)performed on the
[email or web address] platform.
08/10/24 05:43 Urine Culture - Pending
Urine
08/10/24 07:10 MRSA Screen - Pending
Nose
08/10/24 07:10 Blood Culture - Pending
Blood/Venous
08/10/24 07:10 Blood Culture - Pending
Blood/Venous
Assessment / Plan
Initial Seizure Episode
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
History of SAH
CKD
- for MRI brain - without contrast per neurology
- without meningeal signs
Single, Painful Penile lesion with developing eschar without inguinal lymphadenopathy
- lesion with developing eschar, not typical of syphilis, HSV; LGV also seems less likely. Nonsexual causes of wounds also on the differential.
- history currently limited by the condition of the patient; attempted to call spouce Lat with timber sprinkler [id number] via timber sprinkler line however line was busy
- note that he has had progressive cognitive decline over the last two years, 6 months has required assistance with ADLs: bathing and toileting; he is incontinent. Not clear to me if he has nonfamily care givers in the home and would be relevant
history.
- agree with checking syphilis screen; 2011 screen on file here negative; anticipated results tuesday; lesion is not typical given eschar
- HSV1/2 PCR - completed, awaiting results
- wound culture was obtained - expected polymicrobial skin kathleen and enterics, these would likely be colonizers rather than the cause of the wound
- GC/chlamydia on the urine in progress
- will consider additional screening pending further information from family and course
Has indications for home hospice including inability to preform ADLs
--- NOTE | 2024-08-10 12:08 | PTCARENOTE ---
Pt rom ER letargic, not responding to commands. Pt has a sore on his penis that he grabs at . Pt voided while getting wiped with CHG clothes. NOw having US aof abd
[2024-08-10 12:20] LABS: Glucose - Point of Care 122 mg/dl (70-99)
[2024-08-10] MEDS: NOVOLOG FLEXPEN-MODERATE RESISTANCE SC (12:20)
[2024-08-10] MEDS: ASPIRIN 300 MG RECTAL (12:46)
--- NOTE | 2024-08-10 13:09 | EEG.RPT ---
Electroencephalogram Report
Recording
Date of EE08/10/24
Type of EEG: Routine
Length of EEG recordin minutes
Done with Video Recording: Yes
Patient Status: Inpatient
Recording Conditions: Awake and Drowsy
Hyperventilation Performed: No
Photic Stimulation Performed: Yes
Report
LESS THAN 1 HOUR EEG REPORT
LESS THAN 1 HOUR EEG INTERPRETATION:
Moderately abnormal EEG for age due to diffuse bihemispheric slowing
CLINICAL CORRELATION:
This study was suggestive of diffuse cortical dysfunction without focal abnormality. No seizures were recorded.
Clinical correlation is advised.
METHODS:
A 21 channel digitized electroencephalogram (EEG) was performed at the bedside. The 10/20 international system of electrode placement was used with ECG and lateral/vertical eye movements recorded.
QUALITY OF STUDY:
Fair due to muscle artifact
ELECTROENCEPHALOGRAPHER IMPRESSION(S):
Background
There was a low to medium amplitude fairly well organized at times anterior-posterior voltage gradient of delta frequency
There were no significant asymmetries of background activity noted.
Sleep
Drowsiness present
Photic Stimulation
Failed to activate the record.
ECG
Normal sinus rhythm
--- NOTE | 2024-08-10 13:20 | WOUNDNOTE ---
[facility] RN note: Patient admitted with new onset seizures. Patient lives with his .
See H&P for complete history.
PMH: CVA, flu, DKA, acute pancreatitis, respiratory failure.
Wound Location and type/assessment: Patient admitted with: Dorsal penis head full thickness wound with yellow and black necrotic tissue and local erythema. L psann, L buttocks and R anterior ankle scabbed abrasion.
Appetite: no diet currently ordered.
Pressure redistribution devices in place: Centrella Max air bed. He moves his legs.
Plan: Dr. Schuler was in and swabbed penis lesion to check for viral culture and gave to NORMAN King. Vaseline applied to ulcer after gently cleansing with saline. Patient is incontinent of urine. He is not a condom catheter candidate d/t ulcer.
Heels off bed with air chair cushion.
Confirmed orders with Dr. Schuler and discussed with NORMAN King.
Care plan to be updated and will follow as needed.
--- NOTE | 2024-08-10 14:00 | PTCARENOTE ---
Difficult to do stroke scale, as pt was lethargic and unable to do. Pt now trying to work with him
[2024-08-10 14:11] LABS: Vitamin B12 780 pg/ml (239-931)
[2024-08-10 14:33] LABS: ALT (SGPT) 35 U/L (0-50); AST (SGOT) 48 U/L (17-59); Albumin 3.2 g/dl (3.5-5.0); Alkaline Phosphatase 204 U/L (38-126); Direct Bilirubin 0.4 mg/dl (0.0-0.4); Total Bilirubin 1.7 mg/dl (0.2-1.3)
--- NOTE | 2024-08-10 14:46 | W.PN.UPDATE ---
Update Note
Progress Note Update
Patient lethargic, responds to touch.
EEG
Continue Keppra
Carotid Doppler ultrasound
MRI brain without naz
Seizure precautions
Glycemic control
Continue aspirin 325 rectally as npo, Plavix once cleared for PO
Without meningeal symptoms at this time- can hold LP
Penile lesion - F/u HSV1/2 PCR, wound culture, syphillis screen
GC/chlamydia
Complete Abd US
--- NOTE | 2024-08-10 15:13 | PTOTSP ---
Speech Therapy Evaluation:
Pt with chronic risk factors of dysphagia including CVA, SAH, and vascular dementia, compounded by new onset of seizures. Pt currently postictal with poor alertness maintained. Despite this, he readily accepted PO trials presented to oral cavity. Pt
demonstrated slow oral phase with s/sx of aspiration, liquids > puree. No overt s/sx with ice chips. Currently, WBC WNL and no chest imaging completed. No hx of dysphagia or PNAs.
ST hx:
Pt with hx of OPST services for moderate - severe cognitive deficits s/p CVA in 2008. Pt's sister reported worsening in cognitive function since, likely related to vascular dementia noted in chart.
Recommend:
1. Temporary NPO
2. Medications non-oral; essential medications crushed in puree
3. Initiate ARHP via sparing ice chips following oral care and pending pt cues. Recommend RN supervision ONLY.
4. SENSITIZED PAPER TESTER to follow to assess candidacy for diet initiation versus need for instrumental assessment. Pt's BERTHA not currently supportive of either.
--- NOTE | 2024-08-10 15:35 | PN.DE.MGMTRT ---
Insulin Management
- -
08/10/2024 Diabetes Management Consult
Patient admitted 08/10 with seizure. PMH stroke, CABG, CKD 3, HTN, pancreatitis, type 1 diabetes, CHF, SAH, vascular dementia. Glucose on admission 461, A1C not obtained, ordered. Prior to admission was taking tresiba 30 units @ HS and humalog 15
units AC.
Patient is not arousable, postictal, discussed with patient and his sister home diabetes care. states ~ 1 month ago his insulin was changed from NPH and Regular to the current regimen above. She states his blood sugar is low each
morning. She states he has a working glucose monitor and supplies. She states that each insulin dose she helps him with accurate dose.
Glucose on admission 461, received novolog, glucose at 12noon 122.
Patient remains NPO.
Will start reduced dose of Lantus 15 units @ hs tonight, check 3 am glucose. Will continue Q6 hour novolog while NPO.
Will follow
Discussed with nurse.
Diabetes History
- -
Type of Diabetes: 1
Pre-Admission Diabetes Regimen
08/10/24 08/10/24 08/10/24
05:43 06:27 09:04
Creatinine 1.6 H 1.5 H 1.4 H
08/10/24
10:38
Creatinine 1.4 H
Insulin Pump Settings
IP Diabetes Regimen
08/10/24 08/10/24 08/10/24
05:23 05:43 06:24
Glucose 461 H*
POC Glucose 430 H 391 H
08/10/24 08/10/24 08/10/24
06:27 07:26 08:06
Glucose 460 H*
POC Glucose 343 H 305 H
08/10/24 08/10/24 08/10/24
09:03 09:04 10:33
Glucose 298 H
POC Glucose 263 H 199 H
08/10/24 08/10/24
10:38 12:09
Glucose 216 H
POC Glucose 122 H
Patient Education
--- NOTE | 2024-08-10 16:00 | PTCARENOTE ---
Penis wound culture for HSV1/2 PCR sent to lab, labeled
[2024-08-10 16:36] LABS: Lactic Acid 1.8 mmol/L (0.7-2.0)
[2024-08-10 16:39] LABS: Blood Urea Nitrogen 35 mg/dl (9-20); Calcium 9.6 mg/dl (8.4-10.2); Carbon Dioxide 24 mmol/L (22-30); Chloride 109 mmol/L (98-107); Estimated Creatinine Clearance 51 ml/min; Glucose 206 mg/dl (70-99); Potassium 3.9 mmol/L (3.5-5.1); Sodium 143 mmol/L (135-145); eGFR > 60.00
[2024-08-10 18:29] LABS: Glucose - Point of Care 227 mg/dl (70-99)
[2024-08-10] MEDS: NOVOLOG FLEXPEN-MODERATE RESISTANCE 3 UNITS SC (18:39)
--- NOTE | 2024-08-10 18:51 | PTCARENOTE ---
Assumed care of pt at 1530, he arouses to voice and follows. he opens eyes and does track staff for a few seconds, difficult to assess NIH due to drowsy, he does follow commands but easily agitated and curls to position. pt prefers Right side,
--- NOTE | 2024-08-10 18:58 | PTCARENOTE ---
phone number has been corrected in demographic and emergency contact.
[2024-08-10] MEDS: KEPPRA 750 MG IV (20:22)
[2024-08-10] MEDS: LANTUS 0.15 UNITS SC (20:23)
[2024-08-10] MEDS: NOVOLOG FLEXPEN-MODERATE RESISTANCE 1 UNITS SC (23:45)
[2024-08-10 23:53] LABS: Glucose - Point of Care 177 mg/dl (70-99)
[2024-08-11] VITALS (15 sets, daily range): BP systolic 123–176; BP diastolic 79–143; PULSE 85
[2024-08-11 03:47] LABS: Hematocrit 44.8 % (39.0-52.0); Hemoglobin 15.3 g/dL (13.0-18.0); Mean Corp Hgb Conc. 34.2 g/dL (33.0-37.0); Mean Corpuscular Volume 90.9 fL (80.0-94.0); Mean Platelet Volume 10.4 fL (7.4-10.4); Platelet Count 327 10^3/uL (130-400); Red Blood Cell Count 4.93 10^6/uL (4.70-6.10); Red Cell Dist. Width 14.1 % (11.5-14.5); White Blood Cell Count 7.8 10^3/uL (4.8-10.8)
[2024-08-11 04:12] LABS: ALT (SGPT) 29 U/L (0-50); AST (SGOT) 22 U/L (17-59); Albumin 2.8 g/dl (3.5-5.0); Alkaline Phosphatase 182 U/L (38-126); Blood Urea Nitrogen 31 mg/dl (9-20); Calcium 9.6 mg/dl (8.4-10.2); Carbon Dioxide 24 mmol/L (22-30); Chloride 114 mmol/L (98-107); Direct Bilirubin 0.2 mg/dl (0.0-0.4); Estimated Creatinine Clearance 55 ml/min; Glucose 150 mg/dl (70-99); Potassium 4.4 mmol/L (3.5-5.1); Sodium 146 mmol/L (135-145); Total Bilirubin 1.6 mg/dl (0.2-1.3); Total Protein 5.7 g/dl (6.3-8.2); eGFR > 60.00
--- NOTE | 2024-08-11 04:40 | PTCARENOTE ---
Patient lethargic and withdrawn throughout the night. Occasionally yelling and moaning. Mental status waxes and wanes. No seizure activity noted.
[2024-08-11] MEDS: NOVOLOG FLEXPEN-MODERATE RESISTANCE 1 UNITS SC (06:18)
[2024-08-11 06:23] LABS: Glucose - Point of Care 152 mg/dl (70-99)
[2024-08-11] MEDS: HEPARIN 5000 UNITS SC ×2 (07:47→16:41)
[2024-08-11] MEDS: ASPIRIN 300 MG RECTAL (07:47)
[2024-08-11] MEDS: KEPPRA 750 MG IV (07:48)
[2024-08-11 09:48] LABS: Glycohemoglobin (HgbA1c) 15.3 % (4.0-5.6)
--- NOTE | 2024-08-11 10:40 | W.PN.NEURO.1 ---
Today's Communication / Plan
-
.
Subjective/Objective
Subjective Data
Date of Service: August 11, 2024
Neurology follow-up note
24-hour events: Intermittently hypertensive, transiently hypothermic.
Routine EEG (08/10/2024)�generalized slowing with no evidence of epileptiform discharges
Brain MRI�acute/subacute bihemispheric infarcts with the largest in the left MCA cortical area.
Carotid Doppler ultrasound�no hemodynamically significant stenosis
Brain MRI without naz (03/15/2021)�acute/subacute bihemispheric subcortical/cortical infarcts
Labs: Sodium�146, glucose�150, total bili�1.6, normal WBCs, creatinine.
PMH: vascular dementia, bihemispheric strokes (2020), PFO, SAH(2008?), CAD, HTN, DLP, type I DM, CKD, h/o pancreatitis, GERD, BMI 19, ambulatory dysfunction, ambulatory dysfunction
PSH: LINQ, CABG
SH: , on disability since 2008, formerly worked for [employer], non-smoker, no history excessive alcohol use; ambulates with a walker
FH: Stroke and coronary artery disease
All:NKDA
ROS: C unable due to encephalopathy
General: Restrained
Cardio: Regular rate and rhythm. Extremities are without cyanosis or edema.
Neuro:
Mental Status: Lethargic, oriented to name, '60s ', hospital. Requires verbal and tactile stimulation to stay awake. Does not follow requests.
Cranial Nerves: Orthophoric primary gaze. Pupils 2.5 mm, nonreactive. No nystagmus, facial weakness.
Motor: Moves all limbs within bed plane
Reflexes: Limited due to positioning
Sensory: Unable to assess due to poor attention
Coordination: No tremors myoclonic movements
Gait: deferred
Assessment and Plan:
I. Bihemispheric acute/subacute infarcts. Likely etiology�embolic first seizure, likely symptomatic.
II. First seizure, likely symptomatic.
III. Multifactorial encephalopathy (vascular, metabolic), improved
IV. 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
V. Probable cerebral amyloid angiopathy vs hypertensive microhemorrhages
-Continue Telemetry monitoring
-Continue Keppra 500 mg twice daily
-Please check lipid panel
-Continue aspirin 81 mg once a day
-JAMIN if TTE is unremarkable
-Please obtain medical records from [facility]
-DVT prophylaxis.
I personally reviewed all radiology and labs along with past medical records pertinent to current medical problems. Total time spent in patient care is 70 minutes.
Thank you for allowing us to participate in the care of this patient. We will continue to follow. Please do not hesitate to contact us with any questions or concerns.
Objective Data
Vital Signs
Temp Pulse Resp BP Pulse Ox
36.3 C 85 13 156/102 96
08/11/24 07:28 08/11/24 09:31 08/11/24 09:31 08/11/24 09:31 08/11/24 09:54
Lab Results
08/11/24 03:37
08/11/24 03:37
Sodium 146 mmol/L (135-145) H 08/11/24 03:37
Potassium 4.4 mmol/L (3.5-5.1) 08/11/24 03:37
BUN 31 mg/dl (9-20) H 08/11/24 03:37
Glucose 150 mg/dl (70-99) H 08/11/24 03:37
Calcium 9.6 mg/dl (8.4-10.2) 08/11/24 03:37
Vitamin B12 780 pg/ml (239-931) 08/10/24 06:27
Ur Buprenorphine Negative (Negative) 08/10/24 05:43
Patient Allergies
No Known Allergies Allergy (Verified 08/10/24 05:19)
Vital Signs and Labs
-
Vital Signs and Labs:
Vital Signs
Temp Pulse Resp BP Pulse Ox
36.3 C 85 13 156/102 96
08/11/24 07:28 08/11/24 09:31 08/11/24 09:31 08/11/24 09:31 08/11/24 09:54
Lab Results
08/11/24 03:37
08/11/24 03:37
Sodium 146 mmol/L (135-145) H 08/11/24 03:37
Potassium 4.4 mmol/L (3.5-5.1) 08/11/24 03:37
BUN 31 mg/dl (9-20) H 08/11/24 03:37
Glucose 150 mg/dl (70-99) H 08/11/24 03:37
Calcium 9.6 mg/dl (8.4-10.2) 08/11/24 03:37
Vitamin B12 780 pg/ml (239-931) 08/10/24 06:27
Ur Buprenorphine Negative (Negative) 08/10/24 05:43
Medications
-
Medications:
Generic Name Dose Route Start Last Admin
Trade Name Freq PRN Reason Stop Dose Admin
Acetaminophen 650 mg 08/10/24 11:41
Acetaminophen 650 Mg Rectal Suppository RECTAL 09/07/24 11:40
Q4HPRN PRN
CHAMBERLAIN, mild pain, or temp >100.4F
Acetaminophen 650 mg 08/10/24 11:41
Acetaminophen 325 Mg Tablet PO 09/07/24 11:40
Q4HPRN PRN
CHAMBERLAIN, mild pain, or temp >100.4F
Aspirin 300 mg 08/10/24 11:41 08/11/24 07:47
Aspirin 300 Mg Rectal Suppository RECTAL 09/07/24 11:40 300 mg
DAILY TERRENCE Administration
Heparin Sodium 5,000 units 08/10/24 08:39 08/11/24 07:47
Heparin 5,000 Units/Ml 1 Ml Vial SC 09/07/24 08:38 5,000 units
Q8 TERRENCE Administration
Hydralazine HCl 10 mg 08/10/24 08:39
Hydralazine 20 Mg/Ml Vial IV 09/07/24 08:38
Q6HPRN PRN
for SBP > 180
Insulin Glargine 15 units/ 0.15 mls @ 0 mls/hr 08/10/24 22:00 08/10/24 20:23
Device SC 09/07/24 21:59 0.15 mls
HS TERRENCE Administration
As Directed
Insulin Aspart 0 units 08/10/24 12:00 08/11/24 06:18
Insulin Aspart Moderate Resistance 300 Units/3 Ml Pen.Injctr SC 09/07/24 11:59 1 units
Q6 TERRENCE Administration
Protocol
Levetiracetam 750 mg 08/10/24 20:00 08/11/24 07:48
Levetiracetam (100 Mg/Ml) 500 Mg/5 Ml Vial IV 09/07/24 19:59 750 mg
Q12 TERRENCE Administration
Lorazepam 2 mg 08/10/24 08:39
Lorazepam 2 Mg/Ml Vial IV 09/07/24 08:38
Q8HPRN PRN
seizure
Metoprolol Tartrate 5 mg 08/10/24 12:00 08/11/24 06:09
Metoprolol 5 Mg/5 Ml Vial IV 09/07/24 11:59 Not Given
Q6 TERRENCE
Ondansetron HCl 4 mg 08/10/24 11:41
Ondansetron 4 Mg/2 Ml Vial IV 09/07/24 11:40
Q6HPRN PRN
NAUSEA/VOMITING
Sodium Chloride 1 ml 08/10/24 08:47
Nss (Pf) 10 Ml Vial For Ativan 2 Mg Dose IV 09/07/24 08:46
Q8HPRN PRN
IV LORAZEPAM DILUTION
Sodium Chloride 0 flush 08/10/24 09:00
Sodium Chloride 0.9% (Flush) Syringe IV 09/07/24 08:59
PER PROTOCOL TERRENCE
Home Medications
-
Home Medications
insulin degludec 200 unit/mL (3 mL) subcutaneous pen (Tresiba FlexTouch U-200 insulin) 30 unit SC HS Diabetes 08/10/24
insulin lispro 100 unit/mL subcutaneous pen (Humalog KwikPen (U-100) Insulin) SC 08/10/24
metoprolol succinate 50 mg tablet,extended release 24 hr 50 mg PO DAILY Heart Disease/Condition 08/10/24
pantoprazole 40 mg tablet,delayed release 40 mg PO DAILY Gastrointestinal Issue 08/10/24
--- NOTE | 2024-08-11 11:38 | CM ---
Addendum entered by Gloria Mcgowan 08/11/24 11:48:
Of note, pt has a secondary plan through [employer]
Rx coverage through [employer] #[id number]
Original Note:
CM met with spouse/Lat and sister/Nini
Spouse is POA and speaks limited Beninese
Sister to be primary contact to dc planning
Pt and spouse reside in a 2SH with 6 FRANK, 6 steps up to 2nd floor where pt stays throughout the day
Pt with impaired cognition, does not always recognize family, can make needs known at times
Pt has limited ambulation, a few steps with 1 person assist
Pt has a WW but not able to utilize well due to impaired cognition
Pt has a commode
Pt requires 1 person assist for all personal care, often is incontinent of B/B
Pt has hx at [place] and hx with [facility], provider unknown
NO financial insecurities
Pt has hx with applying for services through the [facility] and did not qualify, not sure if clinically or financially
Pt's sister assists and manages his disability benefits
SNF recommended by therapy
Family is likely seeking LTC placement, limited funds intact to fund LTC care
PAC list provided and CM explained MA process
PASRR completed and referrals sent via [facility]
Discharge Disposition- STR with likely transition to LTC
[2024-08-11 12:38] LABS: HDL Cholesterol 51 mg/dl; LDL Cholesterol, Calculated 92 mg/dl; Total Cholesterol 165 mg/dl (50-199); Triglyceride 112 mg/dl (10-149); Very Low Density Lipoprotein 22 mg/dl (0-30)
[2024-08-11] MEDS: NOVOLOG FLEXPEN-MODERATE RESISTANCE SC ×2 (12:58→16:56)
--- NOTE | 2024-08-11 13:02 | PTOTSP ---
ST Follow-Up
Pt currently presents with clinical signs of mild pharyngeal dysphagia characterized by coughing with ingestion of thin liquids that is reduced in frequency when only provided with single sips. Pt demonstrates oral parameters that are WFL for a
pureed diet at this time. Pt's ability to safely and efficiently masticate advanced solid consistencies will need to be re-evaluated during his next dysphagia tx session, which is contingent upon his participation/acceptance of these advanced solid
consistencies.
Recommendations:
- Initiate a PO diet of PUREED SOLIDS, THIN LIQUIDS (single sips only), and meds crushed in puree.
- Aspiration precautions: 1:1 assistance with all PO intake while in restraints; HOB upright for all PO intake; SINGLE SIPS ONLY; slow intake rate; alternate bites/sips; check for oral clearance.
- FUR GRADER to f/u re: diet tolerance, trial diet upgrades, and to determine if pt would benefit from an instrumental swallow study.
- FUR GRADER to f/u re: completion of a speech, language, and cognitive linguistic evaluation in light of pt's acute to subacute infarctions on MRI of brain.
[2024-08-11 13:14] LABS: Glucose - Point of Care 92 mg/dl (70-99)
--- NOTE | 2024-08-11 13:44 | W.PN.HOSP.TC ---
Today's Communication/Plan
-
asa, plavix, statin
TTE
diet
keppra 500mg bid
Assessment / Plan
Assessment / Plan
Physical Exam
General: Well Developed and No Apparent Distress
HEENT: NormoCephalic, Anicteric, Moist mucous membranes, Atraumatic, PERRLA and Oxygen
Respiratory: Clear
Cardiac: S1/S2 and Regular Rhythm
Breast: Deferred by me
GI: Soft, Non Tender, Non Distended and Normal Bowel Sounds
Rectal: Deferred by Provider
Genito-urinary: Clear Urine
Musculoskeletal: No Clubbing, No Cyanosis and No Edema
Skin: Rash (penile rash with small open wound, malodorous)
Neuro: Sedated (post-ictal depression)
Hematologic/Lymphatic: No Lymphadenopathy
63 y.o with new onset seizures in the setting of approximately 2 days of altered mental status typified by speech difficulty (garbled speech) and ambulatory difficulty. Possibly preceding stroke with possible status epilepticus. Hyperglycemia with
mild anion gap which I suspect is secondary to lactic acidosis from the status epilepticus. No acute infection on initial evaluation.
PLAN:
#New onset seizures - Status epilepticus s/p benzos now post ictal.
#Acute CVA
Routine EEG (08/10/2024)�generalized slowing with no evidence of epileptiform discharges
Brain MRI�acute/subacute bihemispheric infarcts with the largest in the left MCA cortical area.
Carotid Doppler ultrasound�no hemodynamically significant stenosis
-Cont telemetry
-Keppra 500mg q12h
-asa 81mg
-TTE and JAMIN if unremarkable
-Hospital records from [place]
-adv diet
-statin
#DM II
-a1c - 15.3
-diabetic consult
-insulin regimen
#Hypernatremia
-monitor with diet that will be placed now
#Single, Painful Penile lesion with developing eschar without inguinal lymphadenopathy
- given neurological changes will test for treponema serology w/ rpr
- wound/lesion culture cultures
- urinary G/C
- ID consult
#Elevated Lactate
-2/2 to seizures
-trended down
#Transaminitis
-US unremarkable for abdominal pathology
#Moderate b/l Effusions
�Not hypoxic
Continue monitor closely for now
Follow-up echo
#CAD - NO acute ischemic changes
- restart aspirin/plavix/statin when tolerating po
- metoprolol 5mg iv q 6 for now pending npo
DVT PPX - heparin sq
code status - Full Code
Total time spent on today's encounter was 50 minutes which included time spent in counseling the patient/family regarding diagnosis and treatment plan as listed above, goals of care, and symptom management. Case was discussed with nursing staff,
specialists, and care coordinators/case management. All labs and imaging personally reviewed by me. Remainder the time spent in detailed review of previous records, lab data, imaging, and other medical provider documentation.
Anticipated Discharge: > 48 hours
Subjective/Interval History
-
Date of Service: August 11, 2024
more alert than yesterday
Objective Data
-
Labs:
Laboratory Results
08/11/24
03:37
WBC 7.8
Hgb 15.3
Hct 44.8
Plt Count 327
Sodium 146 H
Potassium 4.4
Chloride 114 H
Carbon Dioxide 24
BUN 31 H
Creatinine 1.2
Glucose 150 H
Calcium 9.6
Total Bilirubin 1.6 H
AST 22
ALT 29
Alkaline Phosphatase 182 H
Vital Signs:
Vital Signs
Temp Pulse Resp BP Pulse Ox
97.4 F 84 25 128/90 97
08/11/24 11:48 08/11/24 12:00 08/11/24 12:00 08/11/24 12:00 08/11/24 12:00
I&O
08/10/24 08/11/24 08/12/24
06:59 06:59 06:59
Intake Total 1600 / 1600
Balance 1600 / 1600
Review of Systems
-
History Source: Patient
All other systems: Not reviewed unless documented
Data Reviewed
-
MRI: Report Reviewed by me
Labs: Labs Reviewed by me
--- NOTE | 2024-08-11 15:54 | W.PN.ID1 ---
Date of Service
Date of Service: August 11, 2024
Today's Communication
Awaiting lab results.
Assessment / Plan
Initial Seizure Episode
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
History of SAH
CKD
- 08/10/24 for MRI brain: multiple acute/subacute infarcts
- for TTE then JAMIN per neurology
- without meningeal signs
-blood cx's neg to date
Single, Painful Penile lesion with developing eschar without inguinal lymphadenopathy
- lesion with developing eschar, not typical of syphilis, HSV; LGV also seems less likely. Nonsexual causes of wounds also on the differential.
- history currently limited by the condition of the patient; attempted to call spouse Lat with manager of pharmacy [phone] via manager of pharmacy line however line was busy
- note that he has had progressive cognitive decline over the last two years, 6 months has required assistance with ADLs: bathing and toileting; he is incontinent. Not clear to me if he has nonfamily care givers in the home and would be relevant
history.
- syphilis screen pending; 2011 screen on file here negative; lesion is not typical given eschar
- HSV1/2 PCR - completed, awaiting results
- wound culture was obtained pending - expected polymicrobial skin kathleen and enterics, these would likely be colonizers rather than the cause of the wound
- GC/chlamydia on the urine negative
- will consider additional screening pending further information from family and course
Has indications for home hospice including inability to preform ADLs
Chief Complaint
-: Other (penile lesion)
Subjective / Review of Systems
Arousable. Denies CHAMBERLAIN/fever. Denies STD. Monogamous with his . He does not know how long he has the penis lesion.
Of note history may not be reliable due to decreased mental status.
Vital Signs / Physical Exam
Vital Signs
Vital Signs
Temp Pulse Resp BP Pulse Ox
97.3 F 84 25 128/90 97
08/11/24 15:48 08/11/24 12:00 08/11/24 12:00 08/11/24 12:00 08/11/24 12:00
Physical Exam
Constitutional: Acutely Ill
Head: Other (No frontal or maxillary sinus tenderness)
Eyes: No Conjunctival Hemorrhage and Sclera Anicteric
Cardiovascular: Regular Rate and S1/S2
Pulmonary: Other (Decreased BS at bases)
Gastrointestinal: Soft, Non Tender, Non Distended and Normal Bowel Sounds
Genito-Urinary: Negative Suprapubic Tenderness or CVA Tenderness
Extremities: Edema
Neurological: Awake and Other; Negative Oriented (he thinks he is in [facility]) or Meningeal Signs
Objective Data
Lab Data
Lab Results
08/11/24 03:37
08/11/24 03:37
ESR 2 mm/hour (0-20) 08/10/24 05:43
Estimated Creat Clear 55 ml/min 08/11/24 03:37
Lactic Acid Cancelled 08/10/24 21:30
Total Bilirubin 1.6 mg/dl (0.2-1.3) H 08/11/24 03:37
AST 22 U/L (17-59) 08/11/24 03:37
ALT 29 U/L (0-50) 08/11/24 03:37
Alkaline Phosphatase 182 U/L (38-126) H 08/11/24 03:37
C-Reactive Protein 12.40 mg/L (0.0-10.00) H 08/10/24 05:43
Most recent labs reviewed.
Micro Results:
08/10/24 07:10 Wound Culture - Preliminary
Lesion Gram Stain - Preliminary
08/10/24 05:43 Urine Culture - Final
Urine NO GROWTH
08/10/24 07:10 MRSA Screen - Final
Nose No Methicillin Resistant Staphylococcus aureus isolated.
08/10/24 07:10 Blood Culture - Preliminary
Blood/Venous No Growth in 24 hours- Final report to follow
08/10/24 07:10 Blood Culture - Preliminary
Blood/Venous No Growth in 24 hours- Final report to follow
08/10/24 05:43 Chlamydia trachomatis (PCR) - Final
Urine Neisseria gonorrhoeae (PCR) - Final
08/10/24 07:12 Influenza Types A & B (MONSE) - Final
Nasal Swab Negative for Influenza A & B, NAAT
Negative results must be combined with clinical observations
and patient history.
Nucleic Acid Amplification test (NAAT)performed on the
[employer] platform.
08/11/24 Brain MRI: There are focal areas of abnormal diffusion-weighted signal, which likely represent multiple regions of acute to subacute infarction, described in detail above.
Multiple regions of old infarction, as described above. Moderate to severe diffuse atrophy. Moderate to severe leukomalacia. These findings are advanced for the patient's age of 63 years. Foci of old microhemorrhage, which have progressed since
previous examination in 2020. Findings suggest a component of amyloid angiopathy. There could also be a component of hypertensive angiopathy, especially for involvement of the right cerebellum and left lentiform nucleus.
08/11/24 CXR: radiographic findings to be highly suggestive of pulmonary edema with small to moderate bilateral pleural effusions.
[2024-08-11] MEDS: PLAVIX 75 MG PO (16:41)
[2024-08-11] MEDS: LIPITOR 40 MG PO (16:41)
[2024-08-11 17:04] LABS: Glucose - Point of Care 83 mg/dl (70-99)
--- NOTE | 2024-08-11 18:22 | PTCARENOTE ---
see nursing flowsheet. assessment as charted. pt awake often throughout shift. oriented to his own name and birthdate cristopher flores confused conversation. mri of head completed. pt seen by speech and cleared for diet. pt was fed 90 percent of dinner
tray. no seizure activity noted.
[2024-08-11] MEDS: KEPPRA 500 MG IV (20:16)
[2024-08-11] MEDS: LANTUS 0.15 UNITS SC (21:09)
[2024-08-11 21:21] LABS: Glucose - Point of Care 226 mg/dl (70-99)
[2024-08-12] VITALS (13 sets, daily range): BP systolic 128–157; BP diastolic 85–106
[2024-08-12] MEDS: HEPARIN 5000 UNITS SC ×4 (00:22→23:00)
[2024-08-12 04:20] LABS: Hematocrit 45.5 % (39.0-52.0); Hemoglobin 15.2 g/dL (13.0-18.0); Mean Corp Hgb Conc. 33.4 g/dL (33.0-37.0); Mean Corpuscular Hgb 30.3 pg (27.0-31.0); Mean Corpuscular Volume 90.8 fL (80.0-94.0); Mean Platelet Volume 10.7 fL (7.4-10.4); Platelet Count 336 10^3/uL (130-400); Red Blood Cell Count 5.01 10^6/uL (4.70-6.10); Red Cell Dist. Width 14.3 % (11.5-14.5); White Blood Cell Count 8.3 10^3/uL (4.8-10.8)
[2024-08-12 04:46] LABS: ALT (SGPT) 30 U/L (0-50); AST (SGOT) 25 U/L (17-59); Albumin 3.1 g/dl (3.5-5.0); Alkaline Phosphatase 184 U/L (38-126); Blood Urea Nitrogen 28 mg/dl (9-20); Calcium 9.4 mg/dl (8.4-10.2); Carbon Dioxide 23 mmol/L (22-30); Chloride 113 mmol/L (98-107); Estimated Creatinine Clearance 51 ml/min; Glucose 195 mg/dl (70-99); Potassium 3.9 mmol/L (3.5-5.1); Sodium 144 mmol/L (135-145); Total Bilirubin 1.4 mg/dl (0.2-1.3); eGFR > 60.00
--- NOTE | 2024-08-12 06:00 | PTCARENOTE ---
NO acute events overnight. No seizure activity noted. Patient confused and unable to follow commands
[2024-08-12] MEDS: PLAVIX 75 MG PO (07:33)
[2024-08-12] MEDS: ASPIR LOW (ENTERIC COATED) 81 MG PO (07:33)
[2024-08-12] MEDS: KEPPRA 500 MG IV ×2 (07:33→20:32)
[2024-08-12] MEDS: NOVOLOG FLEXPEN-MODERATE RESISTANCE SC ×2 (08:01→12:50)
[2024-08-12 08:10] LABS: Glucose - Point of Care 121 mg/dl (70-99)
--- NOTE | 2024-08-12 12:13 | W.PN.NEURO.1 ---
Today's Communication / Plan
-
.
Subjective/Objective
Subjective Data
Date of Service: August 12, 2024
Neurology follow-up note
Mr. Christianson reports no complaints.
He has been tachycardic and intermittently tachypneic
LDL�92
PMH: vascular dementia, bihemispheric strokes (2020), PFO, SAH(2008?), CAD, HTN, DLP, type I DM, CKD, h/o pancreatitis, GERD, BMI 19, ambulatory dysfunction, ambulatory dysfunction
PSH: LINQ, CABG
SH: , on disability since 2008, formerly worked for [employer], non-smoker, no history excessive alcohol use; ambulates with a walker
FH: Stroke and coronary artery disease
All:NKDA
ROS: C unable due to encephalopathy
General: Restrained
Cardio: Regular rate and rhythm. Extremities are without cyanosis or edema.
Neuro:
Mental Status: Somnolent, arouses to tactile stimuli. Oriented to name only. Follows simple requests intermittently.
Cranial Nerves: Orthophoric primary gaze. Pupils 2.5 mm, nonreactive. Blink to threat bilaterally. No nystagmus, facial weakness. Moderate dysarthria
Motor: Moves all limbs within bed plane
Reflexes: Limited due to positioning
Sensory: Unable to assess due to poor attention
Coordination: No tremors myoclonic movements
Gait: deferred
Assessment and Plan:
I. Bihemispheric acute/subacute infarcts. Likely etiology�embolic first seizure, likely symptomatic.
II. First seizure, likely symptomatic.
III. Multifactorial encephalopathy (vascular, metabolic), improved
IV. 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
V. Probable cerebral amyloid angiopathy vs hypertensive microhemorrhages
-Continue Telemetry monitoring
-Continue Keppra 500 mg twice daily
-Continue aspirin 81 mg once a day
-JAMIN if TTE is unremarkable
-Please obtain medical records from [facility]
-DVT prophylaxis.
I personally reviewed all radiology and labs along with past medical records pertinent to current medical problems. Total time spent in patient care is 35 minutes.
Thank you for allowing us to participate in the care of this patient. We will continue to follow. Please do not hesitate to contact us with any questions or concerns.
Objective Data
Vital Signs
Temp Pulse Resp BP Pulse Ox
36.6 C 115 18 128/105 96
08/12/24 11:56 08/12/24 10:00 08/12/24 10:00 08/12/24 10:00 08/12/24 11:42
Lab Results
08/12/24 03:51
08/12/24 03:51
Sodium 144 mmol/L (135-145) 08/12/24 03:51
Potassium 3.9 mmol/L (3.5-5.1) 08/12/24 03:51
BUN 28 mg/dl (9-20) H 08/12/24 03:51
Glucose 195 mg/dl (70-99) H 08/12/24 03:51
Calcium 9.4 mg/dl (8.4-10.2) 08/12/24 03:51
LDL Cholesterol, Calc Cancelled 08/11/24 10:45
Vitamin B12 780 pg/ml (239-931) 08/10/24 06:27
Ur Buprenorphine Negative (Negative) 08/10/24 05:43
Patient Allergies
No Known Allergies Allergy (Verified 08/10/24 05:19)
Vital Signs and Labs
-
Vital Signs and Labs:
Vital Signs
Temp Pulse Resp BP Pulse Ox
36.6 C 115 18 128/105 96
08/12/24 11:56 08/12/24 10:00 08/12/24 10:00 08/12/24 10:00 08/12/24 11:42
Lab Results
08/12/24 03:51
08/12/24 03:51
Sodium 144 mmol/L (135-145) 08/12/24 03:51
Potassium 3.9 mmol/L (3.5-5.1) 08/12/24 03:51
BUN 28 mg/dl (9-20) H 08/12/24 03:51
Glucose 195 mg/dl (70-99) H 08/12/24 03:51
Calcium 9.4 mg/dl (8.4-10.2) 08/12/24 03:51
LDL Cholesterol, Calc Cancelled 08/11/24 10:45
Vitamin B12 780 pg/ml (239-931) 08/10/24 06:27
Ur Buprenorphine Negative (Negative) 08/10/24 05:43
Medications
-
Medications:
Generic Name Dose Route Start Last Admin
Trade Name Freq PRN Reason Stop Dose Admin
Acetaminophen 650 mg 08/10/24 11:41
Acetaminophen 650 Mg Rectal Suppository RECTAL 09/07/24 11:40
Q4HPRN PRN
CHAMBERLAIN, mild pain, or temp >100.4F
Acetaminophen 650 mg 08/10/24 11:41
Acetaminophen 325 Mg Tablet PO 09/07/24 11:40
Q4HPRN PRN
CHAMBERLAIN, mild pain, or temp >100.4F
Aspirin 81 mg 08/12/24 08:00 08/12/24 07:33
Aspirin 81 Mg (Enteric Coated) Tablet PO 09/09/24 07:59 81 mg
DAILY TERRENCE Administration
Atorvastatin Calcium 40 mg 08/11/24 18:00 08/11/24 16:41
Atorvastatin (Lipitor) 40 Mg Tablet PO 09/08/24 17:59 40 mg
QPM TERRENCE Administration
Clopidogrel Bisulfate 75 mg 08/11/24 14:00 08/12/24 07:33
Clopidogrel 75 Mg Tablet PO 09/08/24 13:59 75 mg
DAILY TERRENCE Administration
Heparin Sodium 5,000 units 08/10/24 08:39 08/12/24 07:33
Heparin 5,000 Units/Ml 1 Ml Vial SC 09/07/24 08:38 5,000 units
Q8 TERRENCE Administration
Hydralazine HCl 10 mg 08/10/24 08:39
Hydralazine 20 Mg/Ml Vial IV 09/07/24 08:38
Q6HPRN PRN
for SBP > 180
Insulin Glargine 15 units/ 0.15 mls @ 0 mls/hr 08/10/24 22:00 08/11/24 21:09
Device SC 09/07/24 21:59 0.15 mls
HS TERRENCE Administration
As Directed
Insulin Aspart 0 units 08/12/24 07:30 08/12/24 08:01
Insulin Aspart Moderate Resistance 300 Units/3 Ml Pen.Injctr SC 09/09/24 07:29 Not Given
AC TERRENCE
Protocol
Levetiracetam 500 mg 08/11/24 20:00 08/12/24 07:33
Levetiracetam (100 Mg/Ml) 500 Mg/5 Ml Vial IV 09/07/24 19:59 500 mg
Q12 TERRENCE Administration
Lorazepam 2 mg 08/10/24 08:39
Lorazepam 2 Mg/Ml Vial IV 09/07/24 08:38
Q8HPRN PRN
seizure
Metoprolol Succinate 50 mg 08/12/24 10:00
Metoprolol 50 Mg Extended Release Tablet PO 09/09/24 09:59
DAILY TERRENCE
Ondansetron HCl 4 mg 08/10/24 11:41
Ondansetron 4 Mg/2 Ml Vial IV 09/07/24 11:40
Q6HPRN PRN
NAUSEA/VOMITING
Pantoprazole Sodium 40 mg 08/12/24 10:00
Pantoprazole 40 Mg Delayed Release Tablet PO 09/09/24 09:59
DAILY TERRENCE
Sodium Chloride 1 ml 08/10/24 08:47
Nss (Pf) 10 Ml Vial For Ativan 2 Mg Dose IV 09/07/24 08:46
Q8HPRN PRN
IV LORAZEPAM DILUTION
Sodium Chloride 0 flush 08/10/24 09:00
Sodium Chloride 0.9% (Flush) Syringe IV 09/07/24 08:59
PER PROTOCOL TERRENCE
Home Medications
-
Home Medications
insulin degludec 200 unit/mL (3 mL) subcutaneous pen (Tresiba FlexTouch U-200 insulin) 30 unit SC HS Diabetes 08/10/24
insulin lispro 100 unit/mL subcutaneous pen (Humalog KwikPen (U-100) Insulin) SC 08/10/24
metoprolol succinate 50 mg tablet,extended release 24 hr 50 mg PO DAILY Heart Disease/Condition 08/10/24
pantoprazole 40 mg tablet,delayed release 40 mg PO DAILY Gastrointestinal Issue 08/10/24
[2024-08-12 12:31] LABS: Glucose - Point of Care 139 mg/dl (70-99)
[2024-08-12] MEDS: TOPROL XL 50 MG PO (12:49)
[2024-08-12] MEDS: PROTONIX 40 MG PO (12:49)
--- NOTE | 2024-08-12 14:27 | W.PN.HOSP.TC ---
Today's Communication/Plan
-
DAPT, Statin
ECHO
Keppra
F/u Final cultures
Glucose control
PT/OT
Assessment / Plan
Assessment / Plan
Physical Exam
General: Well Developed and No Apparent Distress
HEENT: NormoCephalic, Anicteric, Moist mucous membranes, Atraumatic, PERRLA and Oxygen
Respiratory: Clear
Cardiac: S1/S2 and Regular Rhythm
Breast: Deferred by me
GI: Soft, Non Tender, Non Distended and Normal Bowel Sounds
Rectal: Deferred by Provider
Genito-urinary: Clear Urine
Musculoskeletal: No Clubbing, No Cyanosis and No Edema
Skin: Rash (penile rash with small open wound, malodorous)
Neuro: Sedated (post-ictal depression)
Hematologic/Lymphatic: No Lymphadenopathy
63 y.o with new onset seizures in the setting of approximately 2 days of altered mental status typified by speech difficulty (garbled speech) and ambulatory difficulty. Possibly preceding stroke with possible status epilepticus. Hyperglycemia with
mild anion gap which I suspect is secondary to lactic acidosis from the status epilepticus. No acute infection on initial evaluation.
PLAN:
#New onset seizures - Status epilepticus s/p benzos now post ictal.
#Acute CVA
Routine EEG (08/10/2024)�generalized slowing with no evidence of epileptiform discharges
Brain MRI�acute/subacute bihemispheric infarcts with the largest in the left MCA cortical area.
Carotid Doppler ultrasound�no hemodynamically significant stenosis
-Cont telemetry
-Keppra 500mg q12h
-asa 81mg
-TTE and JAMIN if unremarkable
-Hospital records from [place]
-adv diet
-statin
#DM II
-a1c - 15.3
-diabetic consult
-insulin regimen
#Hypernatremia
-monitor with diet that will be placed now
#Single, Painful Penile lesion with developing eschar without inguinal lymphadenopathy
- given neurological changes will test for treponema serology w/ rpr
- wound/lesion culture cultures
- urinary G/C
- ID consult
#Elevated Lactate
-2/2 to seizures
-trended down
#Transaminitis
-US unremarkable for abdominal pathology
#Moderate b/l Effusions
�Not hypoxic
Continue monitor closely for now
Follow-up echo
#CAD - NO acute ischemic changes
- aspirin/plavix/statin
- restarted PO Toprol
DVT PPX - heparin sq
code status - Full Code
Anticipated Discharge: 24 - 48 hours
Subjective/Interval History
-
Date of Service: August 12, 2024
mental status improved AAOx1
Objective Data
-
Labs:
Laboratory Results
08/12/24
03:51
WBC 8.3
Hgb 15.2
Hct 45.5
Plt Count 336
Sodium 144
Potassium 3.9
Chloride 113 H
Carbon Dioxide 23
BUN 28 H
Creatinine 1.3
Glucose 195 H
Calcium 9.4
Total Bilirubin 1.4 H
AST 25
ALT 30
Alkaline Phosphatase 184 H
Vital Signs:
Vital Signs
Temp Pulse Resp BP Pulse Ox
97.9 F 115 18 128/105 96
08/12/24 11:56 08/12/24 10:00 08/12/24 10:00 08/12/24 10:00 08/12/24 11:42
I&O
08/11/24 08/12/24 08/13/24
06:59 06:59 06:59
Intake Total 1600 / 1600 540 / 540
Balance 1600 / 1600 540 / 540
Review of Systems
-
History Source: Patient
All other systems: Not reviewed unless documented
Data Reviewed
-
MRI: Report Reviewed by me
Labs: Labs Reviewed by me
[2024-08-12 17:00] LABS: Glucose - Point of Care 239 mg/dl (70-99)
[2024-08-12] MEDS: LIPITOR 40 MG PO (17:26)
[2024-08-12] MEDS: NOVOLOG FLEXPEN-MODERATE RESISTANCE 3 UNITS SC (17:26)
[2024-08-12] MEDS: LANTUS 0.15 UNITS SC (20:32)
[2024-08-12 20:42] LABS: Glucose - Point of Care 254 mg/dl (70-99)
[2024-08-12 21:45] LABS: Glucose - Point of Care 276 mg/dl (70-99)
[2024-08-13] VITALS (15 sets, daily range): BP systolic 115–144; BP diastolic 77–103; PULSE 92; O2SAT 96
[2024-08-13 04:39] LABS: Hematocrit 46.3 % (39.0-52.0); Hemoglobin 15.6 g/dL (13.0-18.0); Mean Corp Hgb Conc. 33.7 g/dL (33.0-37.0); Mean Corpuscular Hgb 30.6 pg (27.0-31.0); Mean Platelet Volume 10.7 fL (7.4-10.4); Platelet Count 316 10^3/uL (130-400); Red Blood Cell Count 5.09 10^6/uL (4.70-6.10); Red Cell Dist. Width 14.2 % (11.5-14.5)
--- NOTE | 2024-08-13 04:53 | PTCARENOTE ---
No acute events overnight. Patients mental status improving. AAO to self. Able to follow simple commands at times. Patient required 2 liters NC while asleep for periods of desaturations into the high 80s.
[2024-08-13 05:02] LABS: ALT (SGPT) 43 U/L (0-50); AST (SGOT) 40 U/L (17-59); Albumin 2.9 g/dl (3.5-5.0); Alkaline Phosphatase 206 U/L (38-126); Blood Urea Nitrogen 29 mg/dl (9-20); Calcium 9.2 mg/dl (8.4-10.2); Carbon Dioxide 24 mmol/L (22-30); Chloride 111 mmol/L (98-107); Estimated Creatinine Clearance 47 ml/min; Glucose 217 mg/dl (70-99); Potassium 4.1 mmol/L (3.5-5.1); Sodium 140 mmol/L (135-145); Total Bilirubin 1.4 mg/dl (0.2-1.3); Total Protein 5.8 g/dl (6.3-8.2); eGFR 56.48
--- NOTE | 2024-08-13 08:55 | PTOTSP ---
Speech Language Pathology
Pt seen for speech/language evaluations. Mild dysarthria noted. Language evaluated via the Quick Aphasia Battery (QAB), form 1. Suspect L neglect. Pt with an overall score of 3.00, indicative of overall severe deficits.
Pt also seen for dysphagia tx. Seen with puree, regular solids, and thin liquids. Prolonged mastication of regular solids noted, at least partially related to reduced dentition. Required liquid wash to clear oral cavity. No overt signs of
aspiration.
Recommend:
(1) Upgrade to IDDSI Level 6 (soft/bite-sized) and thin liquids
(2) Aspiration precautions: sit upright, slow rate, full supervision with assist as needed, ensure oral cavity clear post P.O. intake
(3) Meds as tolerated
(4) PIN MACHINE OPERATOR to continue to follow for dysphagia, speech, and language tx
--- NOTE | 2024-08-13 09:23 | W.PN.ID1 ---
Date of Service
Date of Service: August 13, 2024
Today's Communication
- continue local wound care
- awaiting labs
- do not recommend empiric antibiotics/antivirals at this time
Assessment / Plan
Initial Seizure Episode
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
History of SAH
CKD
DM2 - uncontrolled a1c 15
- 08/10/24 for MRI brain: multiple acute/subacute infarcts
- for TTE then JAMIN per neurology
- without meningeal signs
- blood cx's neg to date
Single, Painful Penile lesion with developing eschar without inguinal lymphadenopathy
- lesion with developing eschar, not typical of syphilis, HSV; LGV also seems less likely. Nonsexual causes of wounds also on the differential.
- history limited by the condition of the patient; is only caregiver, reports they've been celibate for many months, no other care givers in the home
- note that he has had progressive cognitive decline over the last two years, 6 months has required assistance with ADLs: bathing and toileting; he is incontinent.
- syphilis screen pending; 2011 screen on file here negative; lesion is not typical given eschar
- HSV1/2 PCR - completed, awaiting results
- wound culture was obtained pending - expected polymicrobial skin kathleen and enterics, these would likely be colonizers rather than the cause of the wound
- recommend continued local wound care
- - do not recommend empiric antibiotics/antivirals at this time
- GC/chlamydia on the urine negative - further workup for STIs no indicated by family history
Has indications for home hospice including inability to preform ADLs
Chief Complaint
-: Other (penile lesion)
Subjective / Review of Systems
afebrile
bp stable
no events overnight
alert today, confirms wifes history that he hasnt been sexually active for months, denies sexual assault, doesn't recall how the wound started, agrees that no one expect in the home
Vital Signs / Physical Exam
Vital Signs
Vital Signs
Temp Pulse Resp BP Pulse Ox
98.5 F 103 31 142/99 89
08/13/24 03:15 08/13/24 06:00 08/13/24 06:00 08/13/24 06:00 08/13/24 06:00
Physical Exam
Constitutional: No Acute Distress
Cardiovascular: Regular Rate and S1/S2; Negative Murmur or Rub
Pulmonary: Clear and Symmetric; Negative Wheezes or Rales
Gastrointestinal: Soft, Non Tender, Non Distended and Normal Bowel Sounds
Skin: Warm and Dry; Negative Rash or Jaundice
Wound: Other (eschar on the penis stable, no surrounding erythema, warmth or drainage)
Objective Data
Lab Data
Lab Results
08/13/24 04:16
08/13/24 04:16
ESR 2 mm/hour (0-20) 08/10/24 05:43
Estimated Creat Clear 47 ml/min 08/13/24 04:16
Lactic Acid Cancelled 08/10/24 21:30
Total Bilirubin 1.4 mg/dl (0.2-1.3) H 08/13/24 04:16
AST 40 U/L (17-59) 08/13/24 04:16
ALT 43 U/L (0-50) 08/13/24 04:16
Alkaline Phosphatase 206 U/L (38-126) H 08/13/24 04:16
C-Reactive Protein 12.40 mg/L (0.0-10.00) H 08/10/24 05:43
Most recent labs reviewed.
Micro Results:
08/10/24 07:10 Wound Culture - Final
Lesion S aureus-Methicillin Sensitive
Escherichia coli
Gram Stain - Final
08/10/24 07:10 Blood Culture - Preliminary
Blood/Venous No Growth in 72 hours- Final report to follow
08/10/24 07:10 Blood Culture - Preliminary
Blood/Venous No Growth in 72 hours- Final report to follow
08/10/24 05:43 Urine Culture - Final
Urine NO GROWTH
08/10/24 07:10 MRSA Screen - Final
Nose No Methicillin Resistant Staphylococcus aureus isolated.
08/10/24 05:43 Chlamydia trachomatis (PCR) - Final
Urine Neisseria gonorrhoeae (PCR) - Final
08/10/24 07:12 Influenza Types A & B (MONSE) - Final
Nasal Swab Negative for Influenza A & B, NAAT
Negative results must be combined with clinical observations
and patient history.
Nucleic Acid Amplification test (NAAT)performed on the
[employer] platform.
Wound/abscess/other Cult Final 08/13/24-912
Few S aureus-Methicillin Sensitive
Few Escherichia coli
Moderate Mixed skin kathleen
Organism 1 S aureus-Methicillin Sensitive
Organism 2 Escherichia coli
MSSA E.COLI
M.I.C. RX M.I.C. RX
--------- --- --------- ---
Amoxicillin/Potas. Clavulanate <=4/2 S <=8/4 S
Ampicillin <=2 R >16 R
Ampicillin/Sulbactam >16/8 R
Aztreonam <=4 S
Cefazolin <=2 S
Clindamycin <=0.5 S
Ertapenem <=0.5 S
Ciprofloxacin <=0.25 S
Gentamicin <=4 S <=2 S
Erythromycin <=0.5 S
Levofloxacin <=1 S
Oxacillin <=0.25 S
Meropenem <=1 S
Piperacillin/Tazobactam <=8 S
Tetracycline <=4 S <=4 S
Tobramycin <=2 S
Trimethoprim/Sulfamethoxazole <=0.5/9.5 S <=2/38 S
Vancomycin 1 S
08/11/24 Brain MRI: There are focal areas of abnormal diffusion-weighted signal, which likely represent multiple regions of acute to subacute infarction, described in detail above.
Multiple regions of old infarction, as described above. Moderate to severe diffuse atrophy. Moderate to severe leukomalacia. These findings are advanced for the patient's age of 63 years. Foci of old microhemorrhage, which have progressed since
previous examination in 2020. Findings suggest a component of amyloid angiopathy. There could also be a component of hypertensive angiopathy, especially for involvement of the right cerebellum and left lentiform nucleus.
08/11/24 CXR: radiographic findings to be highly suggestive of pulmonary edema with small to moderate bilateral pleural effusions.
--- NOTE | 2024-08-13 09:59 | VATNOTE ---
VAT Rounds: redness and pain noted at IV site in patient's R antecubital fossa IV removed and heat applied, will continue to monitor.
[2024-08-13] MEDS: NOVOLOG FLEXPEN-MODERATE RESISTANCE SC (10:03)
[2024-08-13] MEDS: HEPARIN 5000 UNITS SC ×2 (10:05→17:32)
[2024-08-13] MEDS: KEPPRA 500 MG IV ×2 (10:05→20:09)
[2024-08-13] MEDS: TOPROL XL 50 MG PO (10:06)
[2024-08-13] MEDS: PLAVIX 75 MG PO (10:06)
[2024-08-13] MEDS: PROTONIX 40 MG PO (10:06)
[2024-08-13] MEDS: ASPIR LOW (ENTERIC COATED) 81 MG PO (10:06)
[2024-08-13 10:14] LABS: Glucose - Point of Care 98 mg/dl (70-99)
--- NOTE | 2024-08-13 10:41 | PN.DE.MGMTRT ---
Insulin Management
- -
08/13/2024: Diabetes Management follow up
Patient admitted 08/10 with new onset seizure. PMH stroke, CABG, CKD 3, HTN, pancreatitis, Type 1 diabetes, CHF, SAH, vascular dementia. Glucose on admission 461, A1C not obtained, ordered. Prior to admission was taking Tresiba 30 units @ HS and
Humalog 15 units AC.
discussed with patient and his sister home diabetes care. states ~ 1 month ago his insulin was changed from NPH and Regular to the current regimen above. She states his blood sugar is low each morning. She states he has a working glucose
monitor and supplies. She states that each insulin dose she helps him with accurate dose. Glucose on admission was 461
Patient is awake, alert, very confused, unable to discuss diabetes plan of care. Noted for JU, Cr 1.4, eGFR 56.48
Was started on a soft&bite diet, tolerating well.
Pre-lunch and pre-dinner glucose levels >200. HS glucose was 276 last night, pt received Lantus 15 units, FBG 217(V)@ 4AM and down to 98 @ 10 AM.
Will cont Lantus 15 units @ hs, check 3 am glucose.
Will start low dose AC NovoLog 3 units. Continue moderate corrective insulin with meals
Will cont to follow. Discussed with nurse.
Diabetes History
- -
Type of Diabetes: 1
Pre-Admission Diabetes Regimen
08/13/24
04:16
Creatinine 1.4 H
Lab Results
Hemoglobin A1c 15.3 % (4.0-5.6) H 08/11/24 03:37
Insulin Pump Settings
IP Diabetes Regimen
08/12/24 08/12/24 08/12/24
12:20 16:49 20:31
Glucose
POC Glucose 139 H 239 H 254 H
08/12/24 08/13/24 08/13/24
21:33 04:16 10:00
Glucose 217 H
POC Glucose 276 H 98
Meal type: Dinner
Meal type: Lunch
Meal type: Breakfast
Amount consumed: 75%
Amount consumed: 90%
Amount consumed: 75%
Patient Education
[2024-08-13 12:34] LABS: HSV 1 Subtype by PCR Not Detected; HSV 2 Subtype by PCR Not Detected; Herpes Simplex Source Genital
[2024-08-13 12:48] LABS: Glucose - Point of Care 161 mg/dl (70-99)
[2024-08-13] MEDS: NOVOLOG FLEXPEN-MODERATE RESISTANCE 1 UNITS SC ×2 (13:00→17:31)
[2024-08-13 13:23] LABS: Syphilis/T. pallidum Ab Reflex Negative (Negative)
--- NOTE | 2024-08-13 14:54 | W.PN.NEURO.1 ---
Today's Communication / Plan
-
.
Subjective/Objective
Subjective Data
Date of Service: August 13, 2024
Neurology follow-up note
24-hour events: Afebrile, intermittently tachycardic
LDL�92
TTE-pending.
PMH: vascular dementia, bihemispheric strokes (2020), PFO, SAH(2008?), CAD, HTN, DLP, type I DM, CKD, h/o pancreatitis, GERD, BMI 19, ambulatory dysfunction, ambulatory dysfunction
PSH: LINQ, CABG
SH: , on disability since 2008, formerly worked for [employer], non-smoker, no history excessive alcohol use; ambulates with a walker
FH: Stroke and coronary artery disease
All:NKDA
ROS: C unable due to encephalopathy
General: Restrained
Cardio: Regular rate and rhythm. Extremities are without cyanosis or edema.
Neuro:
Mental Status: Somnolent, arouses to tactile stimuli. Oriented to name only. Follows simple requests intermittently.
Cranial Nerves: Orthophoric primary gaze. Pupils 2.5 mm, nonreactive. Blink to threat bilaterally. No nystagmus, facial weakness. Moderate dysarthria
Motor: Moves all limbs within bed plane
Reflexes: Limited due to positioning
Sensory: Unable to assess due to poor attention
Coordination: No tremors myoclonic movements
Gait: deferred
Assessment and Plan:
I. Bihemispheric acute/subacute infarcts. Likely etiology�embolic first seizure, likely symptomatic.
II. First seizure, likely symptomatic.
III. Multifactorial encephalopathy (vascular, metabolic), improved
IV. 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
V. Probable cerebral amyloid angiopathy vs hypertensive microhemorrhages
-Continue Telemetry monitoring
-Continue Keppra 500 mg twice daily
-Continue aspirin 81 mg once a day
-TTE
-Please obtain medical records from [facility]
-DVT prophylaxis.
-Case was discussed with patient's Sister Nini, present at bedside
I personally reviewed all radiology and labs along with past medical records pertinent to current medical problems. Total time spent in patient care is 40 minutes.
Thank you for allowing us to participate in the care of this patient. We will continue to follow. Please do not hesitate to contact us with any questions or concerns.
Objective Data
Vital Signs
Temp Pulse Resp BP Pulse Ox
37.3 C 91 23 140/92 92
08/13/24 07:05 08/13/24 12:00 08/13/24 12:00 08/13/24 12:00 08/13/24 12:00
Lab Results
08/13/24 04:16
08/13/24 04:16
Sodium 140 mmol/L (135-145) 08/13/24 04:16
Potassium 4.1 mmol/L (3.5-5.1) 08/13/24 04:16
BUN 29 mg/dl (9-20) H 08/13/24 04:16
Glucose 217 mg/dl (70-99) H 08/13/24 04:16
Calcium 9.2 mg/dl (8.4-10.2) 08/13/24 04:16
LDL Cholesterol, Calc Cancelled 08/11/24 10:45
Vitamin B12 780 pg/ml (239-931) 08/10/24 06:27
Ur Buprenorphine Negative (Negative) 08/10/24 05:43
Patient Allergies
No Known Allergies Allergy (Verified 08/10/24 05:19)
Vital Signs and Labs
-
Vital Signs and Labs:
Vital Signs
Temp Pulse Resp BP Pulse Ox
37.3 C 91 23 140/92 92
08/13/24 07:05 08/13/24 12:00 08/13/24 12:00 08/13/24 12:00 08/13/24 12:00
Lab Results
08/13/24 04:16
08/13/24 04:16
Sodium 140 mmol/L (135-145) 08/13/24 04:16
Potassium 4.1 mmol/L (3.5-5.1) 08/13/24 04:16
BUN 29 mg/dl (9-20) H 08/13/24 04:16
Glucose 217 mg/dl (70-99) H 08/13/24 04:16
Calcium 9.2 mg/dl (8.4-10.2) 08/13/24 04:16
LDL Cholesterol, Calc Cancelled 08/11/24 10:45
Vitamin B12 780 pg/ml (239-931) 08/10/24 06:27
Ur Buprenorphine Negative (Negative) 08/10/24 05:43
Medications
-
Medications:
Generic Name Dose Route Start Last Admin
Trade Name Freq PRN Reason Stop Dose Admin
Acetaminophen 650 mg 08/10/24 11:41
Acetaminophen 650 Mg Rectal Suppository RECTAL 09/07/24 11:40
Q4HPRN PRN
CHAMBERLAIN, mild pain, or temp >100.4F
Acetaminophen 650 mg 08/10/24 11:41
Acetaminophen 325 Mg Tablet PO 09/07/24 11:40
Q4HPRN PRN
CHAMBERLAIN, mild pain, or temp >100.4F
Aspirin 81 mg 08/12/24 08:00 08/13/24 10:06
Aspirin 81 Mg (Enteric Coated) Tablet PO 09/09/24 07:59 81 mg
DAILY TERRENCE Administration
Atorvastatin Calcium 40 mg 08/11/24 18:00 08/12/24 17:26
Atorvastatin (Lipitor) 40 Mg Tablet PO 09/08/24 17:59 40 mg
QPM TERRENCE Administration
Clopidogrel Bisulfate 75 mg 08/11/24 14:00 08/13/24 10:06
Clopidogrel 75 Mg Tablet PO 09/08/24 13:59 75 mg
DAILY TERRENCE Administration
Heparin Sodium 5,000 units 08/10/24 08:39 08/13/24 10:05
Heparin 5,000 Units/Ml 1 Ml Vial SC 09/07/24 08:38 5,000 units
Q8 TERRENCE Administration
Hydralazine HCl 10 mg 08/10/24 08:39
Hydralazine 20 Mg/Ml Vial IV 09/07/24 08:38
Q6HPRN PRN
for SBP > 180
Insulin Glargine 15 units/ 0.15 mls @ 0 mls/hr 08/10/24 22:00 08/12/24 20:32
Device SC 09/07/24 21:59 0.15 mls
HS TERRENCE Administration
As Directed
Insulin Aspart 0 units 08/12/24 07:30 08/13/24 13:00
Insulin Aspart Moderate Resistance 300 Units/3 Ml Pen.Injctr SC 09/09/24 07:29 1 units
AC TERRENCE Administration
Protocol
Levetiracetam 500 mg 08/11/24 20:00 08/13/24 10:05
Levetiracetam (100 Mg/Ml) 500 Mg/5 Ml Vial IV 09/07/24 19:59 500 mg
Q12 TERRENCE Administration
Lorazepam 2 mg 08/10/24 08:39
Lorazepam 2 Mg/Ml Vial IV 09/07/24 08:38
Q8HPRN PRN
seizure
Metoprolol Succinate 50 mg 08/12/24 10:00 08/13/24 10:06
Metoprolol 50 Mg Extended Release Tablet PO 09/09/24 09:59 50 mg
DAILY TERRENCE Administration
Ondansetron HCl 4 mg 08/10/24 11:41
Ondansetron 4 Mg/2 Ml Vial IV 09/07/24 11:40
Q6HPRN PRN
NAUSEA/VOMITING
Pantoprazole Sodium 40 mg 08/12/24 10:00 08/13/24 10:06
Pantoprazole 40 Mg Delayed Release Tablet PO 09/09/24 09:59 40 mg
DAILY TERRENCE Administration
Sodium Chloride 1 ml 08/10/24 08:47
Nss (Pf) 10 Ml Vial For Ativan 2 Mg Dose IV 09/07/24 08:46
Q8HPRN PRN
IV LORAZEPAM DILUTION
Sodium Chloride 0 flush 08/10/24 09:00
Sodium Chloride 0.9% (Flush) Syringe IV 09/07/24 08:59
PER PROTOCOL TERRENCE
Home Medications
-
Home Medications
insulin degludec 200 unit/mL (3 mL) subcutaneous pen (Tresiba FlexTouch U-200 insulin) 30 unit SC HS Diabetes 08/10/24
insulin lispro 100 unit/mL subcutaneous pen (Humalog KwikPen (U-100) Insulin) SC 08/10/24
metoprolol succinate 50 mg tablet,extended release 24 hr 50 mg PO DAILY Heart Disease/Condition 08/10/24
pantoprazole 40 mg tablet,delayed release 40 mg PO DAILY Gastrointestinal Issue 08/10/24
--- NOTE | 2024-08-13 16:00 | PTCARENOTE ---
Patient oriented to self only. NIH score 10. Patient is complete in care . INC of urine. Needs assistance with feedings. VS stable. Family provided with updates. Will monitor.
--- NOTE | 2024-08-13 16:12 | CM ---
Chart reviewed and case monitor met with patent and spoke with patient's sister, case monitor made patient's sister aware that [facility] had accepted patient however patient's sister was hoping that [facility] as
they have better ratings.
Plan; Skilled placement.
[2024-08-13 17:05] LABS: Glucose - Point of Care 181 mg/dl (70-99)
[2024-08-13] MEDS: LIPITOR 40 MG PO (17:33)
--- NOTE | 2024-08-13 17:45 | W.PN.HOSP.TC ---
Today's Communication/Plan
-
continue to optimize diabetic management
Assessment / Plan
Assessment / Plan
63 y.o with new onset seizures in the setting of approximately 2 days of altered mental status typified by speech difficulty (garbled speech) and ambulatory difficulty. Possibly preceding stroke with possible status epilepticus. Hyperglycemia with
mild anion gap which I suspect is secondary to lactic acidosis from the status epilepticus. No acute infection on initial evaluation. Sister has noted decreasing mentation for >6 mos
PLAN:
#New onset seizures - Status epilepticus s/p benzos now post ictal.
#Acute CVA
Routine EEG (08/10/2024)�generalized slowing with no evidence of epileptiform discharges
Brain MRI�acute/subacute bihemispheric infarcts with the largest in the left MCA cortical area.
Carotid Doppler ultrasound�no hemodynamically significant stenosis
-Cont telemetry
-Keppra 500mg q12h
-asa 81mg
-TTE and JAMIN if unremarkable
-Hospital records from [place]
-adv diet
-statin
#DM II
-a1c - 15.3
-diabetic consult
-insulin regimen
currently 98-181
#Hypernatremia
-monitor with diet that will be placed now
#Single, Painful Penile lesion with developing eschar without inguinal lymphadenopathy
- given neurological changes will test for treponema serology w/ rpr
- wound/lesion culture cultures
- urinary G/C
- ID consult, ?noninfectious, possible embolic lesion
#Elevated Lactate
-2/2 to seizures
-trended down
#Transaminitis
-US unremarkable for abdominal pathology
#Moderate b/l Effusions
�Not hypoxic
Continue monitor closely for now
Follow-up echo
#CAD - NO acute ischemic changes
- aspirin/plavix/statin
- restarted PO Toprol
DVT PPX - heparin sq
code status - Full Code
reviewed with sister Nini in room
potential transfer to SNF with plans to transition to LTC
Anticipated Discharge: > 48 hours
Subjective/Interval History
-
Date of Service: August 13, 2024
Reviewed with sister in room, apparently pt has had decreasing mentation for at least 8 months
Objective Data
-
Vital Signs:
Vital Signs
Temp Pulse Resp BP Pulse Ox
98 F 91 23 140/92 92
08/13/24 15:05 08/13/24 12:00 08/13/24 12:00 08/13/24 12:00 08/13/24 12:00
I&O
08/12/24 08/13/24 08/14/24
06:59 06:59 06:59
Intake Total 540 / 540
Output Total 100 / 100
Balance 440 / 440
Review of Systems
-
History Source: Family (sister, Nini)
Constitutional: Denies Fever
EENT: Reports No Symptoms Reported
Respiratory: Reports No Symptoms
Cardiac: Reports No Symptoms
Abdomen/GI: Reports No Symptoms
Neuro: Reports Seizures (none past 24 hrs) and Other (advanced vascular dementia)
Physical Exam
-
General: Well Developed, Well Nourished and Appears Chronically Ill
HEENT: Normocephalic, Atraumatic and Moist Mucous Membranes
Respiratory: Clear to Auscultation; Negative Wheezes, Rales or Rhonchi
Cardiac: Regular Rhythm and S1/S2
GI: Nontender and Nondistended
Genito-urinary: Other (penis lesion, does not appear infectious to me, could this have been embolic)
Musculoskeletal: No Clubbing, No Cyanosis and No Edema
Skin: Warm and Dry
Neuro: Awake and Alert
[2024-08-13] MEDS: LANTUS 0.15 UNITS SC (22:25)
[2024-08-13 22:27] LABS: Glucose - Point of Care 327 mg/dl (70-99)
[2024-08-13] MEDS: NOVOLOG FLEXPEN 4 UNITS SC (22:42)
[2024-08-14] VITALS (12 sets, daily range): BP systolic 122–156; BP diastolic 82–109; BMI 24.5
[2024-08-14] MEDS: HEPARIN 5000 UNITS SC ×4 (01:33→23:03)
--- NOTE | 2024-08-14 02:46 | PTCARENOTE ---
Pt continues with incontinence, hygiene and incontinence care provided. Pt will sometimes follow simple commands, NIH as documented. Bedtime blood glucose greater than 300. PRESS OPERATOR AUTOMATIC notified, STAT dose 4units insulin provided per MAR. Call nguyễn within
reach. Bed alarm in place for pt safety.
[2024-08-14 07:52] LABS: Glucose - Point of Care 150 mg/dl (70-99)
[2024-08-14] MEDS: NOVOLOG FLEXPEN-MODERATE RESISTANCE 1 UNITS SC ×3 (09:27→17:44)
--- NOTE | 2024-08-14 09:27 | W.PN.ID1 ---
Date of Service
Date of Service: August 14, 2024
Today's Communication
Has indications for home hospice including inability to preform ADLs
ID service will no longer actively follow this patient please recall for further questions
Assessment / Plan
Initial Seizure Episode
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
History of SAH
CKD
DM2 - uncontrolled a1c 15
- 08/10/24 for MRI brain: multiple acute/subacute infarcts
- for TTE with EF 20% and no evidence of vegetations, JAMIN is planned per neurology
- blood cx's neg to date
Single, Painful Penile lesion with developing eschar without inguinal lymphadenopathy
- syphilis screen negative
- HSV1/2 PCR - negative
- wound culture was obtained pending - expected polymicrobial skin kathleen and enterics as found, these are colonizers rather than the cause of the wound
- recommend continued local wound care
- - do not recommend empiric antibiotics/antivirals at this time
Has indications for home hospice including inability to preform ADLs
ID service will no longer actively follow this patient please recall for further questions
Chief Complaint
-: Other (penile lesion)
Subjective / Review of Systems
afebrile
bp stable
Vital Signs / Physical Exam
Vital Signs
Vital Signs
Temp Pulse Resp BP Pulse Ox
97.6 F 96 29 153/100 93
08/14/24 07:27 08/14/24 06:12 08/14/24 06:12 08/14/24 06:12 08/14/24 04:00
Physical Exam
Constitutional: No Acute Distress
Cardiovascular: Regular Rate and S1/S2; Negative Murmur or Rub
Pulmonary: Clear and Symmetric; Negative Wheezes or Rales
Gastrointestinal: Soft, Non Tender, Non Distended and Normal Bowel Sounds
Skin: Warm and Dry; Negative Rash or Jaundice
Objective Data
Lab Data
Lab Results
08/13/24 04:16
08/13/24 04:16
ESR 2 mm/hour (0-20) 08/10/24 05:43
Estimated Creat Clear 47 ml/min 08/13/24 04:16
Lactic Acid Cancelled 08/10/24 21:30
Total Bilirubin 1.4 mg/dl (0.2-1.3) H 08/13/24 04:16
AST 40 U/L (17-59) 08/13/24 04:16
ALT 43 U/L (0-50) 08/13/24 04:16
Alkaline Phosphatase 206 U/L (38-126) H 08/13/24 04:16
C-Reactive Protein 12.40 mg/L (0.0-10.00) H 08/10/24 05:43
Most recent labs reviewed.
Micro Results:
08/10/24 07:10 Blood Culture - Preliminary
Blood/Venous No Growth in 4 days- Final report to follow
08/10/24 07:10 Blood Culture - Preliminary
Blood/Venous No Growth in 4 days- Final report to follow
08/10/24 07:10 Wound Culture - Final
Lesion S aureus-Methicillin Sensitive
Escherichia coli
Gram Stain - Final
08/10/24 05:43 Urine Culture - Final
Urine NO GROWTH
08/10/24 07:10 MRSA Screen - Final
Nose No Methicillin Resistant Staphylococcus aureus isolated.
08/10/24 05:43 Chlamydia trachomatis (PCR) - Final
Urine Neisseria gonorrhoeae (PCR) - Final
08/10/24 07:12 Influenza Types A & B (MONSE) - Final
Nasal Swab Negative for Influenza A & B, NAAT
Negative results must be combined with clinical observations
and patient history.
Nucleic Acid Amplification test (NAAT)performed on the
Down platform.
08/11/24 Brain MRI: There are focal areas of abnormal diffusion-weighted signal, which likely represent multiple regions of acute to subacute infarction, described in detail above.
Multiple regions of old infarction, as described above. Moderate to severe diffuse atrophy. Moderate to severe leukomalacia. These findings are advanced for the patient's age of 63 years. Foci of old microhemorrhage, which have progressed since
previous examination in 2020. Findings suggest a component of amyloid angiopathy. There could also be a component of hypertensive angiopathy, especially for involvement of the right cerebellum and left lentiform nucleus.
08/11/24 CXR: radiographic findings to be highly suggestive of pulmonary edema with small to moderate bilateral pleural effusions.
--- NOTE | 2024-08-14 09:27 | VATNOTE ---
Pain and redness remain at previous Right AC IV site. No drainage noted. Will continue to monitor.
[2024-08-14] MEDS: KEPPRA 500 MG IV ×2 (09:28→19:56)
[2024-08-14] MEDS: FLUSH (NSS) 1 FLUSH IV (09:28)
[2024-08-14] MEDS: ASPIR LOW (ENTERIC COATED) 81 MG PO (09:29)
[2024-08-14] MEDS: PLAVIX 75 MG PO (09:29)
[2024-08-14] MEDS: PROTONIX 40 MG PO (09:29)
[2024-08-14] MEDS: TOPROL XL 50 MG PO (09:40)
--- NOTE | 2024-08-14 09:41 | PN.DE.MGMTRT ---
Insulin Management
- -
08/14/2024: Diabetes Management follow up
Patient admitted 08/10 with new onset seizure. PMH stroke, CABG, CKD 3, HTN, pancreatitis, Type 1 diabetes, CHF, SAH, vascular dementia. Glucose on admission 461, A1C 15.3. Prior to admission was taking Tresiba 30 units @ HS and Humalog 15 units AC.
states ~ 1 month ago his insulin was changed from NPH and Regular to the current regimen above. She states his blood sugar is low each morning. She states he has a working glucose monitor and supplies. She states that each insulin dose she
helps him with accurate dose. Glucose on admission was 461
Patient is awake, alert, very confused, unable to discuss diabetes plan of care. Noted for JU, Cr 1.4, eGFR 56.48
Was started on a soft bite diet, tolerating well.
08/13 Pre-lunch and pre-dinner glucose 98 tp 181. HS glucose was 324 last night, pt received additional 4 units novolog with Lantus 15 units, FBG 150.
Will continue moderate corrective insulin with meals and 15 units lantus @ HS. Will start 3 units novolog AC; HOLD if patient does not eat meal.
Will cont to follow. Discussed with nurse.
Diabetes History
- -
Type of Diabetes: 2 requiring insulin
Pre-Admission Diabetes Regimen
Lab Results
Hemoglobin A1c 15.3 % (4.0-5.6) H 08/11/24 03:37
Insulin Pump Settings
IP Diabetes Regimen
08/13/24 08/13/24 08/13/24
10:00 12:34 16:53
POC Glucose 98 161 H 181 H
08/13/24 08/14/24
22:16 07:41
POC Glucose 327 H 150 H
Meal type: Lunch
Meal type: Breakfast
Amount consumed: 90%
Amount consumed: 60%
Patient Education
[2024-08-14 12:31] LABS: Glucose - Point of Care 181 mg/dl (70-99)
[2024-08-14] MEDS: NOVOLOG FLEXPEN 3 UNITS SC ×2 (13:47→17:45)
--- NOTE | 2024-08-14 15:11 | W.PN.HOSP.TC ---
Today's Communication/Plan
-
await dispo decision
Assessment / Plan
Assessment / Plan
63 y.o with new onset seizures in the setting of approximately 2 days of altered mental status typified by speech difficulty (garbled speech) and ambulatory difficulty. Possibly preceding stroke with possible status epilepticus. Hyperglycemia with
mild anion gap which I suspect is secondary to lactic acidosis from the status epilepticus. No acute infection on initial evaluation. Sister has noted decreasing mentation for >6 mos
PLAN:
#New onset seizures - Status epilepticus s/p benzos now post ictal.
#Acute CVA
Routine EEG (08/10/2024)�generalized slowing with no evidence of epileptiform discharges
Brain MRI�acute/subacute bihemispheric infarcts with the largest in the left MCA cortical area.
Carotid Doppler ultrasound�no hemodynamically significant stenosis
-Cont telemetry
-Keppra 500mg q12h
-asa 81mg
-TTE and JAMIN if unremarkable
-Hospital records from [place]
-adv diet
-statin
As per Dr. Lynch, neuro, to be on dapt for 3 weeks total, then followed by Plavix with op holter. Would not do JAMIN due to severity of underlying dementia.
to continue Keppra 500 mg bid
#DM II
-a1c - 15.3
-diabetic consult
-insulin regimen
currently 98-181
#Hypernatremia
-resolved, Na 140
#Single, Painful Penile lesion with developing eschar without inguinal lymphadenopathy
- given neurological changes will test for treponema serology w/ rpr
- wound/lesion culture cultures
- urinary G/C
- ID consult, ?noninfectious, possible embolic lesion
#Elevated Lactate
-2/2 to seizures
-trended down
#Transaminitis
-US unremarkable for abdominal pathology
#Moderate b/l Effusions
�Not hypoxic
Continue monitor closely for now
Follow-up echo
#CAD - NO acute ischemic changes
- aspirin/plavix/statin
- restarted PO Toprol
DVT PPX - heparin sq
code status - Full Code
reviewed with sister Nini in room
potential transfer to SNF with plans to transition to LTC. Await input as to facility. Apparently, there is no plans on Hospice
Anticipated Discharge: 24 - 48 hours
Subjective/Interval History
-
Date of Service: August 14, 2024
Pt is more alert
Objective Data
-
Vital Signs:
Vital Signs
Temp Pulse Resp BP Pulse Ox
97.5 F 88 31 146/85 96
08/14/24 11:34 08/14/24 12:00 08/14/24 12:00 08/14/24 12:00 08/14/24 13:51
I&O
08/13/24 08/14/24 08/15/24
06:59 06:59 06:59
Intake Total 540 / 540 1075 / 1075
Output Total 100 / 100
Balance 440 / 440 1075 / 1075
Review of Systems
-
History Source: Patient and Coordinated Provider
Constitutional: Denies Fever
EENT: Reports No Symptoms Reported
Respiratory: Reports No Symptoms
Cardiac: Reports No Symptoms
Abdomen/GI: Reports No Symptoms
Neuro: Reports Seizures (none past 24 hrs) and Other (advanced vascular dementia)
Physical Exam
-
General: Well Developed, Well Nourished and Appears Chronically Ill
HEENT: Normocephalic, Atraumatic and Moist Mucous Membranes
Respiratory: Clear to Auscultation; Negative Wheezes, Rales or Rhonchi
Cardiac: Regular Rhythm and S1/S2
GI: Nontender and Nondistended
Genito-urinary: Other (penis lesion, does not appear infectious to me, could this have been embolic)
Musculoskeletal: No Clubbing, No Cyanosis and No Edema
Skin: Warm and Dry
Neuro: Awake and Alert
--- NOTE | 2024-08-14 16:18 | CM ---
Patient with Dx new onset seizures, acute CVA. Room air. Receiving IV Keppra. PT/OT recommend skilled rehab.
Spoke with patient's sister Nini; she spoke with Rachael in [place] at [facility] and is hoping her brother can go there for rehab followed by LTC. Nini is aware SNF may require LTC application. She is speaking with patient's Lat about
rehab choices, who speaks both Uzbek and Andorran.
Phone call to [facility]; left message requesting response to referral.
Plan follow up with [facility] for acceptance.
[2024-08-14 16:46] LABS: Glucose - Point of Care 188 mg/dl (70-99)
[2024-08-14] MEDS: LIPITOR 40 MG PO (17:44)
[2024-08-14 21:49] LABS: Glucose - Point of Care 215 mg/dl (70-99)
[2024-08-14] MEDS: LANTUS 0.15 UNITS SC (21:58)
[2024-08-15] VITALS (10 sets, daily range): BP systolic 132–166; BP diastolic 90–102
--- NOTE | 2024-08-15 05:04 | PTCARENOTE ---
Incontinence care performed. NIH as documented. VSS. Bed alarm in place for patient safety.
--- NOTE | 2024-08-15 07:19 | PN.DE.MGMTRT ---
Insulin Management
- -
08/15/2024: Diabetes Management follow up
Patient admitted 08/10 with new onset seizure. PMH stroke, CABG, CKD 3, HTN, pancreatitis, Type 1 diabetes, CHF, SAH, vascular dementia. Glucose on admission 461, A1C 15.3. Prior to admission was taking Tresiba 30 units @ HS and Humalog 15 units AC.
states ~ 1 month ago his insulin was changed from NPH and Regular to the current regimen above. She states his blood sugar is low each morning. She states he has a working glucose monitor and supplies. She states that each insulin dose she
helps him with accurate dose. Glucose on admission was 461
Patient is awake, alert, very confused, unable to discuss diabetes plan of care.
Was started on a soft bite diet, tolerating well.
08/14 Glucose range 150 to 215. Restarted AC novolog @ 3 units with moderate corrective, did receive corrective insulin at each meal.
08/15 Fasting glucose 134. Will increase AC novolog to 4 units with moderate corrective and continue lantus 15 units @ hs.
HOLD if patient does not eat meal, may receive corrective insulin.
Will cont to follow. Discussed with nurse.
Diabetes History
- -
Type of Diabetes: 2 requiring insulin
Pre-Admission Diabetes Regimen
Lab Results
Hemoglobin A1c 15.3 % (4.0-5.6) H 08/11/24 03:37
Insulin Pump Settings
IP Diabetes Regimen
08/14/24 08/14/24 08/14/24
07:41 12:19 16:35
POC Glucose 150 H 181 H 188 H
08/14/24
21:38
POC Glucose 215 H
Meal type: Breakfast
Amount consumed: 75%
Patient Education
[2024-08-15 07:38] LABS: Glucose - Point of Care 134 mg/dl (70-99)
--- NOTE | 2024-08-15 08:53 | VATNOTE ---
VAT rounds: redness decreasing at old PIV site in pt's R antecubital fossa, pt continues to c/o discomfort but cannot tell if it is getting better or not. Site is firm to touch. Heat applied.
[2024-08-15] MEDS: FLUSH (NSS) 1 FLUSH IV (09:02)
[2024-08-15] MEDS: PROTONIX 40 MG PO (09:02)
[2024-08-15] MEDS: PLAVIX 75 MG PO (09:02)
[2024-08-15] MEDS: KEPPRA 500 MG IV (09:02)
[2024-08-15] MEDS: HEPARIN 5000 UNITS SC (09:02)
[2024-08-15] MEDS: ASPIR LOW (ENTERIC COATED) 81 MG PO (09:02)
[2024-08-15] MEDS: TOPROL XL 50 MG PO (09:02)
[2024-08-15] MEDS: NOVOLOG FLEXPEN 4 UNITS SC ×2 (09:03→14:44)
[2024-08-15] MEDS: NOVOLOG FLEXPEN-MODERATE RESISTANCE SC (09:04)
--- NOTE | 2024-08-15 09:57 | CM ---
Addendum entered by Luz Zarco 08/15/24 13:28:
Patient scheduled for a 4:00 p.m. ambulance transport, update to patients Nini corley.
[facility]
Report: [phone]

Original Note:
CM reviewed chart, spoke with Maci, liaison from [facility], confirmed ability to accept patient today. CM spoke with patients Nini corley, agreeable to patient to discharge to facility. IMM verbally reviewed, agreeable to discharge, form
placed in chart. Patient will require ambulance transport, forms on patients chart. Update to Hospitalist with update. CM will continue to follow for all discharge planning needs.
Plan; [facility] SNF, will require ambulance transport
--- NOTE | 2024-08-15 12:24 | W.PN.HOSP.TC ---
Today's Communication/Plan
-
dc to SNF
Assessment / Plan
Assessment / Plan
63 y.o with new onset seizures in the setting of approximately 2 days of altered mental status typified by speech difficulty (garbled speech) and ambulatory difficulty. Possibly preceding stroke with possible status epilepticus. Hyperglycemia with
mild anion gap which most likely is secondary to lactic acidosis from the status epilepticus. No acute infection on initial evaluation. Sister has noted decreasing mentation for >6 mos
PLAN:
#New onset seizures - Status epilepticus s/p benzos now post ictal.
#Acute CVA
Routine EEG (08/10/2024)�generalized slowing with no evidence of epileptiform discharges
Brain MRI�acute/subacute bihemispheric infarcts with the largest in the left MCA cortical area.
Carotid Doppler ultrasound�no hemodynamically significant stenosis
-Cont telemetry
-Keppra 500mg q12h
-asa 81mg
-TTE: Severely reduced left ventricular systolic function. LV ejection fraction is
20%.
Mild aortic regurgitation.
Normal right ventricular size and function.
Mild eccentric tricuspid regurgitation. Mildly elevated PASP. Estimated
pulmonary artery pressure of 39 mmHg assuming a right atrial pressure of 3
mmHg.
Interatrial septum is intact with no evidence of shunting by color flow
Doppler.
Compared to 10/22/21: LVEF has declined from 25-30% to 20%.
-Hospital records from [place]
-adv diet
-statin
As per Dr. Lynch, neuro, to be on dapt for 3 weeks total, then followed by Plavix with op holter. Would not do JAMIN due to severity of underlying dementia.
to continue Keppra 500 mg bid
#IDDM II
-a1c - 15.3
-diabetic consult
-insulin regimen
currently 98-181
#Hypernatremia
-resolved, Na 140
#Single, Painful Penile lesion with developing eschar without inguinal lymphadenopathy
- given neurological changes will test for treponema serology w/ rpr
- wound/lesion culture cultures
- urinary G/C
- ID consult, ?noninfectious, possible embolic lesion
#Elevated Lactate
-2/2 to seizures
-trended down
#Transaminitis
-US unremarkable for abdominal pathology
#Moderate b/l Effusions
�Not hypoxic
Continue monitor closely for now
Follow-up echo
#CAD - NO acute ischemic changes
- aspirin/plavix/statin
- restarted PO Toprol
DVT PPX - heparin sq
code status - Full Code
reviewed with sister Nini in room 08/13
As per CM, has been accepted to SNF
More than 30 minutes spent in discharge including
Final examination of the patient
Summarizing hospital stay
Instructions for continuing care to all relevant caregivers
Preparation of discharge records, prescriptions, and referral forms
Total time spent (in minutes): 45
see dictated note
Anticipated Discharge: Today
Subjective/Interval History
-
Date of Service: August 15, 2024
Appears a little brighter, answering basic questions
Objective Data
-
Vital Signs:
Vital Signs
Temp Pulse Resp BP Pulse Ox
97.4 F 89 19 140/90 94
08/15/24 07:10 08/15/24 04:00 08/15/24 04:00 08/15/24 04:00 08/15/24 11:43
I&O
08/14/24 08/15/24 08/16/24
06:59 06:59 06:59
Intake Total 1075 / 1075 725 / 725
Balance 5 / 1075 725 / 725
Review of Systems
-
Unable to obtain full review of systems at this time due to: Dementia
History Source: Patient and Coordinated Provider
Constitutional: Denies Fever
EENT: Reports No Symptoms Reported
Respiratory: Reports No Symptoms
Cardiac: Reports No Symptoms
Abdomen/GI: Reports No Symptoms
Neuro: Reports Seizures (none past 24 hrs) and Other (advanced vascular dementia)
Physical Exam
-
General: Well Developed, Well Nourished and Appears Chronically Ill
HEENT: Normocephalic, Atraumatic and Moist Mucous Membranes
Respiratory: Clear to Auscultation; Negative Wheezes, Rales or Rhonchi
Cardiac: Regular Rhythm and S1/S2
GI: Nontender and Nondistended
Genito-urinary: Other (penis lesion, does not appear infectious to me, could this have been embolic)
Musculoskeletal: No Clubbing, No Cyanosis and No Edema
Skin: Warm and Dry
Neuro: Awake and Alert
[2024-08-15 12:54] LABS: Glucose - Point of Care 159 mg/dl (70-99)
--- NOTE | 2024-08-15 13:00 | PTCARENOTE ---
Patient to be transferred [facility].
--- NOTE | 2024-08-15 14:10 | W.DS.TRANS ---
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
-
Discharge Instructions:
Discharge Diagnosis/Procedures New Onset Seizures, IDDM poorly controlled
Diet Grind all food,Diabetic, Carb Controlled
Activity With assistance
Driving Restrictions No driving
Bathing Restrictions None
Blood Work CBC, CMP in 1 week
Others Tests Accucheck glu qid with sliding scale, moderate
resistance
Consider outpatient Holter Monitor depending on
patient's condition
Instructions:
Stand-Alone Forms:
Changes to Home Medications: Yes
Discharge Medications:
DC Medications w/original date entered in [employer]
metoprolol succinate 50 mg tablet,extended release 24 hr 50 mg PO DAILY Heart Disease/Condition 08/10/24
pantoprazole 40 mg tablet,delayed release 40 mg PO DAILY Gastrointestinal Issue 08/10/24
aspirin 81 mg tablet,delayed release 81 mg PO DAILY 21 days #21 tabs 08/15/24
atorvastatin 40 mg tablet 40 mg PO QPM #30 tabs 08/15/24
clopidogrel 75 mg tablet 75 mg PO DAILY #30 tabs 08/15/24
insulin aspart U-100 100 unit/mL (3 mL) subcutaneous pen 4 unit (0.04 mL) SC AC #100 mL 08/15/24
insulin degludec 200 unit/mL (3 mL) subcutaneous pen (Tresiba FlexTouch U-200 insulin) 20 unit (0.1 mL) SC HS Diabetes #0 mL 08/15/24
levetiracetam 500 mg tablet (Keppra) 500 mg PO BID #60 tabs 08/15/24
Home Medication Changes
Keppra has been started
Tresiba dose decreased from 30 units to 20 units and moderate sensitivity sliding scale insulin has been added
Pending Results: No
[2024-08-15] MEDS: NOVOLOG FLEXPEN-MODERATE RESISTANCE 300 UNITS SC (14:43)
--- NOTE | 2024-08-15 15:54 | PTCARENOTE ---
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 Report given to Gabrielle at [facility]
== END 2024-08-15 16:00 | DRG 64 ==
LOC: IMU 08:02
PROVIDERS: Internal Medicine; ADMITTING PHYSICIAN Internal Medicine; ATTENDING PHYSICIAN Internal Medicine; CONSULT PHYSICIAN Psychiatry & Neurology Neurology; CONSULT PHYSICIAN Student in an Organized Health Care Education/Training Program; EMERGENCY PHYSICIAN Student in an Organized Health Care Education/Training Program
DX: I63.89 Other cerebral infarction (principal); E11.10 Type 2 diabetes mellitus with ketoacidosis without coma; G93.41 Metabolic encephalopathy; E87.0 Hyperosmolality and hypernatremia; I16.1 Hypertensive emergency; N18.30 Chronic kidney disease, stage 3 unspecified; F01.50 Vascular dementia, unspecified severity, without behavioral disturbance, psychotic disturbance, mood disturbance, and anxiety; I68.0 Cerebral amyloid angiopathy; I12.9 Hypertensive chronic kidney disease with stage 1 through stage 4 chronic kidney disease, or unspecified chronic kidney disease; N48.9 Disorder of penis, unspecified; R56.9 Unspecified convulsions; I25.10 Atherosclerotic heart disease of native coronary artery without angina pectoris
CPT/HCPCS: 70450; 70544; 70548; 70551; 71045; 76700; 80048; 80053; 80061; 80076; 80306; 81003; 81015; 82010; 82077; 82248; 82550; 82607; 82805; 82962; 83036; 83605; 83690; 83735; 84443; 85025; 85027; 85652; 86140; 86780; 87040; 87070; 87077; 87086; 87147; 87186; 87205; 87491; 87502; 87529; 87591; 87811; 92507; 92523; 92526; 92610; 93005; 93306; 93880; 95816; 96361; 96374; 96375; 97163; 97167; 97530; 99291; A9585